=== PATIENT | female | born 1965 | race Caucasian/White ===

== ENCOUNTER → 2019-03-21 13:29 | Outpatient (CLI) | payer OTHER, SELFPAY ==
[2019-03-21 13:54] LABS: Basophils % 0.7 % (0.1-2.0); Eosinophils # 0.1 K/mm3 (0.0-0.4); Eosinophils % 1.7 % (0.1-12.0); Hematocrit 47.9 % (37.0-47.0); Hemoglobin 16.3 g/dL (12.2-16.2); Lymphocytes # 1.4 K/mm3 (0.7-4.5); Lymphocytes % 29.3 % (10-50); Mean Corpuscular HGB Conc 34.1 g/dL (31.8-35.4); Mean Corpuscular Hemoglobin 30.5 pg (27.0-31.2); Mean Corpuscular Volume 89.7 fl (81-99); Monocytes # 0.2 K/mm3 (0.1-1.0); Monocytes % 4.5 % (1.7-9.3); Neutrophils # 3.1 K/mm3 (1.8-7.8); Neutrophils % 63.8 % (37.0-80.0); Platelet Count 314 K/mm3 (142-424); Red Blood Count 5.35 M/mm3 (4.20-5.40); Red Cell Distribution Width 12.8 % (11.5-17.5); White Blood Count 4.9 K/mm3 (4.8-10.8)
[2019-03-21 14:43] LABS: Alanine Aminotransferase 35 U/L (12-78); Albumin Level 3.9 gm/dL (3.4-5.0); Albumin/Globulin Ratio 1.2 (1.1-1.8); Alkaline Phosphatase 97 U/L (46-116); Anion Gap 10.5 mEq/L (5-15); Aspartate Amino Transferase 25 U/L (15-37); Bilirubin,Total 0.3 mg/dL (0.2-1.0); Blood Urea Nitrogen 16 mg/dL (7-18); Calcium 8.9 mg/dL (8.5-10.1); Carbon Dioxide 31 mmol/L (21.0-32.0); Chloride 103 mmol/L (98-107); Creatinine,Serum 1.39 mg/dL (0.55-1.02); Estimated Glomerular Filt Rate 40 ml/min (>60); Free Thyroxine Index 0.5 ug/dL (5.93-13.13); GFR (African American) 48 ML/MIN (>60); Globulin 3.3 gm/dl (1.3-3.2); Glucose 97 mg/dL (74-106); Potassium 4.5 mmoL/L (3.5-5.1); Sodium 140 mmol/L (136-145); T4 (Thyroxine) 1.6 ug/dl (4.7-13.3); Thyroid Stimulating Hormone 33.78 uIU/ml (0.358-3.740); Total Protein,Serum 7.2 gm/dL (6.4-8.2); Triiodothryronine (T3) Uptake 30 % (31-39)
[2019-03-23 18:24] LABS: Peripheral Smear Review Scanned Result
[2019-03-25 17:10] LABS: Erythropoietin 10.3 mIU/mL (2.6-18.5)
== END ==
PROVIDERS: Visit Provider Internal Medicine Adolescent Medicine
DX: E03.9 Hypothyroidism, unspecified (principal); I10 Essential (primary) hypertension
CPT/HCPCS: 36415; 80053; 82668; 84436; 84443; 84479; 85025

== ENCOUNTER → 2019-03-28 07:41 | Outpatient (CLI) | payer OTHER, SELFPAY ==
--- NOTE | 2019-03-28 07:45 | US_ITS ---
PROCEDURE: US THYROID CLINICAL INDICATION: HYPOTHYROIDISM Thyroid enlargement, weight gain, cough COMPARISON: No exams were available for comparison FINDINGS: Right lobe: 6.3 x 2.3 x 2.2 cm. There is diffuse heterogeneous echogenicity but no discrete nodule. Left lobe: 5.2 x 1.9 x 2.1 cm with diffuse heterogeneous echogenicity but no discrete nodule Isthmus: The isthmus is thickened at 8 mm Additional findings: IMPRESSION: Enlarged thyroid gland with diffuse heterogeneous echogenicity consistent with goiter without obvious nodule Dictated by: Jass Vieira MD 03/28/2019 17:01 Electronically signed by Jass Vieira MD in [place] 03/28/2019 17:01
== END ==
PROVIDERS: PCP Internal Medicine Adolescent Medicine; Visit Provider Internal Medicine Adolescent Medicine
DX: E03.9 Hypothyroidism, unspecified (principal)
CPT/HCPCS: 76536

== ENCOUNTER → 2019-04-04 09:34 | Outpatient (CLI) | payer OTHER, SELFPAY ==
--- NOTE | 2019-04-04 09:41 | MR_ITS ---
PROCEDURE: MR SHOULDER LT WO CON CLINICAL INDICATION: Lt shoulder pain COMPARISON: No exams were available for comparison TECHNIQUE: Fall with limited range of motion routine multiplanar multisequence exam was performed. FINDINGS: There is a full-thickness tear with retraction of the supraspinatus tendon of the rotator cuff. A partial thickness tear of the infraspinatus tendon along its inferior aspect at the greater tuberosity attachment site is also noted. There is a tear with retraction of the subscapularis tendon as it overlies the humeral head. There is fluid consistent with hemorrhage/edema along the subscapularis muscle plane. No normal appearing proximal biceps tendon is demonstrated within the bicipital tendon groove. Anterior and medial dislocation of the bicipital tendon is noted. A greater than normal amount of fluid is seen in the bicipital tendon sheath consistent with hemorrhage. Hemorrhage/edema is seen in the soft tissues along the proximal shaft of the humerus. Moderate sized joint effusion/hemarthrosis is noted. A small amount of bone marrow edema is seen in the distal clavicle and in the acromion. This is likely reactive associated with AC joint arthropathy. Osseous contusion is felt to be less likely. A small amount of fluid is seen in the acromial clavicular joint space. No fracture or dislocation of the scapula or humerus is apparent. IMPRESSION: Tear with retraction of subscapularis tendon. Full-thickness tear of supraspinatus tendon with partial thickness tear infraspinatus tendon. Dislocation of bicipital tendon. Dictated by: Michi Sequeira 04/04/2019 10:51 Electronically signed by Michi Sequeira in [place] 04/04/2019 10:51
== END ==
PROVIDERS: PCP Internal Medicine Adolescent Medicine; Visit Provider Orthopaedic Surgery
DX: S40.012A Contusion of left shoulder, initial encounter (principal)
CPT/HCPCS: 73221

== ENCOUNTER → 2019-04-05 10:59 | Outpatient (CLI) | payer OTHER, SELFPAY ==
[2019-04-05 11:26] LABS: Eosinophils # 0.1 K/mm3 (0.0-0.4); Eosinophils % 1.4 % (0.1-12.0); Hematocrit 46.9 % (37.0-47.0); Hemoglobin 16.4 g/dL (12.2-16.2); INR 0.96 (0.9-1.1); Lymphocytes # 1.4 K/mm3 (0.7-4.5); Lymphocytes % 31.1 % (10-50); Mean Corpuscular HGB Conc 34.9 g/dL (31.8-35.4); Mean Corpuscular Hemoglobin 31.5 pg (27.0-31.2); Mean Corpuscular Volume 90.2 fl (81-99); Mean Platelet Volume 7.1 fl (7.4-10.4); Monocytes # 0.2 K/mm3 (0.1-1.0); Monocytes % 3.8 % (1.7-9.3); Neutrophils # 2.8 K/mm3 (1.8-7.8); Neutrophils % 62.8 % (37.0-80.0); Platelet Count 278 K/mm3 (142-424); White Blood Count 4.5 K/mm3 (4.8-10.8)
[2019-04-05 12:55] LABS: Chloride 104 mmol/L (98-107); Potassium 4.7 mmoL/L (3.5-5.1); Sodium 139 mmol/L (136-145)
[2019-04-05 12:58] LABS: Alanine Aminotransferase 25 U/L (12-78); Albumin Level 4.4 g/dl (3.5-5.0); Albumin/Globulin Ratio 1.4 (1.1-1.8); Alkaline Phosphatase 87 U/L (38-126); Anion Gap 12.7 mEq/L (5-15); Aspartate Amino Transferase 26 U/L (14-36); Bilirubin,Total 0.7 mg/dl (0.2-1.3); Blood Urea Nitrogen 15 mg/dl (7-17); Carbon Dioxide 27 mmol/L (22.0-30.0); Estimated Glomerular Filt Rate 75 ml/min (>60); GFR (African American) 91 ML/MIN (>60); Globulin 3.1 g/dL (1.3-3.2); Total Protein,Serum 7.5 g/dl (6.3-8.2)
[2019-04-05 12:59] LABS: Calcium 9.4 mg/dl (8.4-10.2); Glucose 95 mg/dl (74-100)
== END ==
PROVIDERS: Visit Provider Orthopaedic Surgery
DX: Z01.818 Encounter for other preprocedural examination (principal); S46.012D Strain of muscle(s) and tendon(s) of the rotator cuff of left shoulder, subsequent encounter; S46.102D Unspecified injury of muscle, fascia and tendon of long head of biceps, left arm, subsequent encounter
CPT/HCPCS: 36415; 80053; 85025; 85610

== ENCOUNTER → 2019-04-25 11:56 | Outpatient (CLI) | payer OTHER, SELFPAY ==
[2019-04-25 12:13] LABS: Basophils % 0.6 % (0.1-2.0); Eosinophils # 0.1 K/mm3 (0.0-0.4); Hematocrit 47.3 % (37.0-47.0); Lymphocytes # 1.6 K/mm3 (0.7-4.5); Lymphocytes % 31.5 % (10-50); Mean Corpuscular HGB Conc 33.8 g/dL (31.8-35.4); Mean Corpuscular Hemoglobin 31.3 pg (27.0-31.2); Mean Corpuscular Volume 92.7 fl (81-99); Mean Platelet Volume 7.3 fl (7.4-10.4); Monocytes # 0.3 K/mm3 (0.1-1.0); Monocytes % 5.2 % (1.7-9.3); Neutrophils # 3.2 K/mm3 (1.8-7.8); Neutrophils % 61.6 % (37.0-80.0); Platelet Count 386 K/mm3 (142-424); White Blood Count 5.1 K/mm3 (4.8-10.8)
[2019-04-25 13:23] LABS: Chloride 97 mmol/L (98-107); Potassium 4.9 mmoL/L (3.5-5.1); Sodium 138 mmol/L (136-145)
[2019-04-25 13:25] LABS: Blood Urea Nitrogen 14 mg/dl (7-17); Estimated Glomerular Filt Rate 88 ml/min (>60); GFR (African American) 106 ML/MIN (>60)
[2019-04-25 13:26] LABS: Alanine Aminotransferase 19 U/L (12-78); Albumin Level 4.5 g/dl (3.5-5.0); Albumin/Globulin Ratio 1.4 (1.1-1.8); Alkaline Phosphatase 94 U/L (38-126); Anion Gap 14.9 mEq/L (5-15); Aspartate Amino Transferase 20 U/L (14-36); Bilirubin,Total 0.4 mg/dl (0.2-1.3); Calcium 9.8 mg/dl (8.4-10.2); Carbon Dioxide 31 mmol/L (22.0-30.0); Globulin 3.2 g/dL (1.3-3.2); Glucose 92 mg/dl (74-100); Total Protein,Serum 7.7 g/dl (6.3-8.2)
[2019-04-25 13:58] LABS: Thyroid Stimulating Hormone 8.68 uIU/mL (0.465-4.68)
== END ==
PROVIDERS: Visit Provider Internal Medicine Adolescent Medicine
DX: D75.1 Secondary polycythemia (principal); R79.89 Other specified abnormal findings of blood chemistry; E03.9 Hypothyroidism, unspecified
CPT/HCPCS: 36415; 80053; 84443; 85025

== ENCOUNTER → 2019-05-10 08:17 | Outpatient (CLI) | payer OTHER, SELFPAY ==
--- NOTE | 2019-05-10 08:21 | XR_ITS ---
PROCEDURE: XR SHOULDER LT MIN 2V CLINICAL INDICATION: sp LT shoulder surgery, dos 04/11/2019 Follow-up surgery COMPARISON: XR SHOULDER LT MIN 2V from 04/03/2019 XR SHOULDER LT MIN 2V from 04/11/2019 FINDINGS: 2 anchor screws are present in the humeral head as before. Small sclerotic linear density is present distal to the lower anchor screw. No fracture or dislocation. There is mild subacromial stenosis with mild superior location of the humeral head with mild osteoarthritis of the glenohumeral. External rotation view was not performed due to patient's instructions. IMPRESSION: No change with no acute finding. Postsurgical changes of the humeral head with mild osteoarthritic change in subacromial stenosis Dictated by: Jass Vieira MD 05/10/2019 08:38 Electronically signed by Jass Vieira MD in [place] 05/10/2019 08:38
== END ==
PROVIDERS: PCP Internal Medicine Adolescent Medicine; Visit Provider Orthopaedic Surgery
DX: Z48.89 Encounter for other specified surgical aftercare (principal); M25.512 Pain in left shoulder
CPT/HCPCS: 73030

== ENCOUNTER → 2019-06-06 08:14 | Outpatient (CLI) | payer OTHER, SELFPAY ==
[2019-06-06 08:57] LABS: Basophils % 0.7 % (0.1-2.0); Eosinophils # 0.1 K/mm3 (0.0-0.4); Eosinophils % 3.5 % (0.1-12.0); Hematocrit 44.2 % (37.0-47.0); Hemoglobin 15.3 g/dL (12.2-16.2); Lymphocytes # 1.5 K/mm3 (0.7-4.5); Lymphocytes % 41.2 % (10-50); Mean Corpuscular HGB Conc 34.6 g/dL (31.8-35.4); Mean Corpuscular Volume 89.6 fl (81-99); Mean Platelet Volume 7.1 fl (7.4-10.4); Monocytes # 0.3 K/mm3 (0.1-1.0); Monocytes % 6.8 % (1.7-9.3); Neutrophils # 1.7 K/mm3 (1.8-7.8); Neutrophils % 47.8 % (37.0-80.0); Platelet Count 286 K/mm3 (142-424); Red Blood Count 4.93 M/mm3 (4.20-5.40); Red Cell Distribution Width 12.7 % (11.5-17.5); White Blood Count 3.6 K/mm3 (4.8-10.8)
[2019-06-06 10:13] LABS: Chloride 103 mmol/L (98-107); Potassium 4.4 mmoL/L (3.5-5.1); Sodium 138 mmol/L (136-145)
[2019-06-06 10:16] LABS: Alanine Aminotransferase 37 U/L (12-78); Albumin Level 4.3 g/dl (3.5-5.0); Albumin/Globulin Ratio 1.5 (1.1-1.8); Alkaline Phosphatase 91 U/L (38-126); Anion Gap 11.4 mEq/L (5-15); Aspartate Amino Transferase 27 U/L (14-36); Bilirubin,Total 0.7 mg/dl (0.2-1.3); Blood Urea Nitrogen 15 mg/dl (7-17); Calcium 9.6 mg/dl (8.4-10.2); Carbon Dioxide 28 mmol/L (22.0-30.0); Cholesterol 231 mg/dl (140-200); Estimated Glomerular Filt Rate 88 ml/min (>60); GFR (African American) 106 ML/MIN (>60); Globulin 2.8 g/dL (1.3-3.2); Glucose 96 mg/dl (74-100); Total Protein,Serum 7.1 g/dl (6.3-8.2); Triglycerides 199 mg/dl (30-150); VLDL Cholesterol 40 mg/dL (0-40)
[2019-06-06 10:17] LABS: HDL Cholesterol 46 mg/dl (40-60)
[2019-06-06 10:28] LABS: Direct LDL Cholesterol 156.12 mg/dL (100-129)
[2019-06-06 10:48] LABS: Thyroid Stimulating Hormone 0.58 uIU/mL (0.465-4.68)
== END ==
PROVIDERS: Visit Provider Internal Medicine Adolescent Medicine
DX: E03.9 Hypothyroidism, unspecified (principal); I10 Essential (primary) hypertension
CPT/HCPCS: 36415; 80053; 80061; 84443; 85025

== ENCOUNTER → 2019-07-10 08:18 | Outpatient (CLI) | payer OTHER, SELFPAY ==
--- NOTE | 2019-07-10 08:23 | XR_ITS ---
PROCEDURE: XR SHOULDER LT MIN 2V CLINICAL INDICATION: shoulder pain Previous shoulder surgery COMPARISON: XR SHOULDER LT MIN 2V from 05/10/2019 FINDINGS: The surgical anchors are again seen projecting over the humeral head. Again noted is a slightly high-riding humeral head with slight subacromial stenosis. There is mild degenerate change of the AC joint. There are no soft tissue calcifications. IMPRESSION: Stable left shoulder with postsurgical changes and mild subacromial stenosis Dictated by: Dr. Flaco Freeman MD 07/10/2019 14:[address] Flaco Freeman MD in [place] 07/10/2019 14:24
== END ==
PROVIDERS: PCP Internal Medicine Adolescent Medicine; Visit Provider Orthopaedic Surgery
DX: M75.102 Unspecified rotator cuff tear or rupture of left shoulder, not specified as traumatic (principal); S46.102A Unspecified injury of muscle, fascia and tendon of long head of biceps, left arm, initial encounter
CPT/HCPCS: 73030

== ENCOUNTER 2019-09-05 10:00 | Outpatient (RCR) | payer OTHER, SELFPAY ==
--- NOTE | 2019-05-23 12:22 | HMH.PTOPEV ---
PT Outpatient Evaluation Rehab PT Outpatient Evaluation Start: 05/23/19 09:48 Freq: Status: Active Protocol: Document 05/23/19 11:02 FRANCOIS (Rec: 05/23/19 12:21 PDESEROUX [id number]) Electronically Signed By John Adams, PT 05/23/19 11:02 Outpatient Therapy Subjective History Subjective History Pt. is a 54 year old female who presents to outpatient PT with complaints of subacute and constant L shldr./bicep P! s/p open LUE RTC repair of subscap. and supraspinatus with LUE LHBT tenodesis on 04/11/19. Pt. reports tripping and falling over a rug next to the Pharmacy at hospital with her LUE outstretched above her head on 04/03/19. Pt. reports donning LUE sling at all times except for bathing for the past 6 wks. and has been working on squeezing her stress ball and moving her wrist. Pt. also reports post surgical precautions including no lifting/pushing/pulling. Pt. RTMD 06/07/19. Pt. also reports that she hasn't been icing the past few days, PT instructed pt. to continue icing for 20' at least 3x/day, pt. vocalized understanding. Current medications include Lisinopril, Levothyroxine, Zofran, and Tylenol. PMH includes Appendectomy, Cholecystectomy, HTN, Asthma, and Varicose Vein stripping. Chief Complaint Pain,Stiff,Swelling Symptom Type Ache,Dull,Numbness Symptoms Relieved By Brace/Support,OTC Meds, Prescription Meds Symptoms Aggravated By Supine,Physical Activity, Lifting Prior Functional Limitations None Current Functional Limitations Reaching,Lifting,Housework, Dressing,Driving,Sleeping, Recreation Activity Symptom Description Constant but Variable Level of pain today (0-10) 7 Pain scale - at its best (0-10) 10 Pain scale - at its worst (0-10) 5 Shoulder/Elbow Zaira
== END 2019-09-23 11:00 | disposition home or self-care (01) ==
LOC: PT.CARL 10:00
PROVIDERS: Visit Provider Orthopaedic Surgery
DX: S46.012D Strain of muscle(s) and tendon(s) of the rotator cuff of left shoulder, subsequent encounter (principal)
CPT/HCPCS: 97010; 97014; 97033; 97110; 97140; 97163; 97164; G0283

== ENCOUNTER → 2019-09-19 12:48 | Outpatient (CLI) | payer OTHER, SELFPAY ==
--- NOTE | 2019-09-19 12:49 | MR_ITS ---
PROCEDURE: MR SHOULDER LT WO CON CLINICAL INDICATION: Lt shoulder pain PRIOR SHOULDER SURGERY AFTER FALL ON APR 11. UNABLE TO RAISE ARM ABOVE HEAD. WEAKNESS IN ARM. INCREASED PAIN. BEEN GOING TO PHYSICAL THERAPY. PRIOR MRI 04/04/2019. PRIOR X-RAY 07/10/2019 COMPARISON: MR MR SHOULDER LT WO CON from 04/04/2019 CR XR SHOULDER LT MIN 2V from 07/10/2019 TECHNIQUE: Routine multiplanar multi echo sequences are performed without gadolinium enhancement. FINDINGS: There are postsurgical changes with artifact from the anchor screws and metallic shavings. Correlation with the hyper surgery performed is needed. Previously the patient had a tear of the subscapularis tendon and supraspinatus tendon. The subscapularis tendon fibers once again noted to be retracted consistent with tear of the subscapularis tendon. The supraspinatus tendon fibers do not appear intact as well distally consistent with tear of the supraspinatus. The infraspinatus tendon does appear to be intact as does the teres minor tendon. Humeral head is somewhat high-riding. No obvious labral tear. There has been prior bicipital tendon transfer. IMPRESSION: There appears to be persistent tear of the subscapularis tendon now with tear of the supraspinatus tendon which appears complete with some minimal retraction of the tendon fibers with postsurgical changes. Dictated b Jass Vieira MD 09/23/2019 09:37 Jass Vieira MD in [place] 09/23/2019 09:37
== END ==
PROVIDERS: PCP Internal Medicine Adolescent Medicine; Visit Provider Orthopaedic Surgery
DX: S46.102A Unspecified injury of muscle, fascia and tendon of long head of biceps, left arm, initial encounter; M75.102 Unspecified rotator cuff tear or rupture of left shoulder, not specified as traumatic
CPT/HCPCS: 73221

== ENCOUNTER → 2019-10-16 10:27 | Outpatient (CLI) | payer OTHER, SELFPAY ==
[2019-10-16 11:04] LABS: Basophils % 0.7 % (0.1-2.0); Eosinophils % 0.6 % (0.1-12.0); Hematocrit 48.6 % (37.0-47.0); Hemoglobin 17.2 g/dL (12.2-16.2); Lymphocytes # 1.5 K/mm3 (0.7-4.5); Mean Corpuscular HGB Conc 35.3 g/dL (31.8-35.4); Mean Corpuscular Hemoglobin 32.1 pg (27.0-31.2); Mean Platelet Volume 6.8 fl (7.4-10.4); Monocytes # 0.2 K/mm3 (0.1-1.0); Monocytes % 4.8 % (1.7-9.3); Neutrophils % 62.9 % (37.0-80.0); Platelet Count 293 K/mm3 (142-424); Red Blood Count 5.35 M/mm3 (4.20-5.40); White Blood Count 4.8 K/mm3 (4.8-10.8)
[2019-10-16 11:32] LABS: Erythrocyte Sedimentation Rate 3 mm/hr (0-30)
== END ==
PROVIDERS: Visit Provider Orthopaedic Surgery
DX: M25.512 Pain in left shoulder (principal)
CPT/HCPCS: 36415; 85025; 85651; 86140

== ENCOUNTER 2019-11-24 09:02 | Emergency (ER) | payer OTHER, SELFPAY ==
--- NOTE | 2019-11-24 09:14 | XR_ITS ---
PROCEDURE: XR CHEST 2V Referring Doctor: Migue Montiel Patient Age:54Y CLINICAL HISTORY: cough Cough 4 days fever started this morning. Patient able Lev raise left arm due to shoulder surgery and pain Chest PT COMPARISON: CR XR CHEST EMPLOYEE from 11/28/2018 CR XR SHOULDER LT MIN 2V from 07/10/2019 FINDINGS: PA and lateral chest performed today but comparison is made to previous CX are 11/28/2018. E the heart is normal in size with heart sebastian and mediastinal structures appearing satisfactory and stable Subtle accentuation of markings at left mid lung was seen on the previous 2018 CXR study as well as a left shoulder exam from 2019 I believe reflects stable features//mild chronic changes. Nothing definitely acute otherwise. Markings are upper normal in prominence towards the right infrahilar region but appear stable but no discrete focal pneumonia. No pneumothorax but no pleural effusion Small metallic aero anchors are seen at the left humeral neck from previous shoulder surgery. IMPRESSION: Stable chest with nothing definitely acute Dictated by: Alfred Mackey MD 11/24/2019 17:03 Alfred Mackey MD in [place] 11/24/2019 17:03
[2019-11-24 09:26] VITALS: BP 150/98; PULSE 86; RESP 16; TEMP 36.8; O2SAT 98; BMI 29.0
--- NOTE | 2019-11-24 09:51 | HMH.EDUTC ---
[facility] [place] Clinical Impression: Acute bronchitis Qualifiers: Bronchitis organism: unspecified organism Qualified Code(s): J20.9 - Acute bronchitis, unspecified Disposition: Home, Self-Care Condition on Discharge: Good Instructions: DI for Pneumonia -- Adult, Preventing the Spread of Coronavirus Discharge Instructions Additional Instructions: Drink plenty of fluids. Take tylenol for pain or fever. Take the medications as directed. Follow up with your regular doctor. GO TO THE ER FOR ANY WORSENING SYMPTOMS FOLLOW THE DIRECTIONS ON THE COVID-19 HAND OUT THAT WE GAVE YOU REGARDING SELF-ISOLATION UNTIL YOU KNOW YOUR COVID-19 RESULTS Prescriptions: Benzonatate [Tessalon Perle 100mg Cap] 100 mg PO TIDP PRN #30 cap PRN Reason: Cough Transmission Status: Received by [id number] Azithromycin [Z-Arvind 250mg Tab*] 250 mg PO UD DOSE PK #6 tab Transmission Status: Received by [facility] # [id number] Referrals: Migue Ricketts MD [Primary Care Provider] - Forms: Work/School Release Time of Disposition: 10:10 Medical Decision Making - Medical Records Medical records reviewed: No: I reviewed the patient's medical records. - Rico Inquiry Pt receiving controlled substance: No Vital Signs: 11/24/19 09:26 11/24/19 10:15 Temperature 98.3 F 98.3 F Temperature Source Oral Pulse Rate 86 Pulse Rate [Right Brachial] 86 Respiratory Rate 16 16 Blood Pressure 150/98 H Blood Pressure [Right Arm] 150/98 H Blood Pressure Mean [Right Arm] 115 Blood Pressure Source [Right Arm] Automatic Cuff Blood Pressure Position [Right Arm] Sitting 02 Sat by Pulse Oximetry 98 Oxygen Delivery Method Room Air - Lab Data Lab results reviewed: Yes: I reviewed the patient's lab results. Lab Results 11/24/19 09:14: Influenza Type A Ag Negative, Influenza Type B Ag Negative 11/24/19 09:14: Strep Scn Rapid Clinic Negative Orders (Tests/Meds): ED MEDICATIONS Discontinued Medications Generic Name Dose Route Start Last Admin Trade Name Freq PRN Reason Stop Dose Admin Ceftriaxone Sodium 1 gm 11/24/19 09:52 11/24/19 10:08 Ceftriaxone 1gm Vial IM 11/24/19 09:53 1 gm ONCE ONE Administration Protocol Lidocaine HCl 0 ml 11/24/19 09:52 10/11/20 10:08 Lidocaine 1% 5ml Pf Vial IM 11/24/19 09:53 2.1 ml ONCE ONE Administration ORDERS Category Date Time Status Strep Screen Confirmation Stat Micro 11/24/19 09:14 Received [facility] [place]PI - General Stated complaint: Sore throat, Cough, Fever Time Seen by Provider: 11/24/19 09:51 Mode of Arrival: Ambulatory Source of Information: Patient Limitations: No Limitations Description of Symptoms (Recalled from Triage Doc. by RN): PATIENT C/O NON-PRODUCTIVE COUGH, SOA, FEVER, FATIGUE, AND BODY ACHES X 3 DAYS. STATES SHE HAS HISTORY OF PNEUMONIA HEENT Symptoms (Recalled from RN notes): No Resp Symptoms (Recalled from RN notes): Yes Skin Symptoms (Recalled from RN notes): No MS Symptoms (Recalled from RN notes): Yes Functional Status (Recalled from RN notes): WNL - History of Present Illness Provider Complaint: She states that she has been coughing and feeling bad for the past 2 days. - Related Data Home Medications Medication Instructions Recorded Confirmed lisinopril 10 mg tablet 10 mg PO DAILY 04/04/19 11/24/19 Atorvastatin Calcium [Lipitor 10mg 10 mg PO HS 11/24/19 11/24/19 Tab] Famotidine [Pepcid 20mg Tablet] 20 mg PO BID 11/24/19 11/24/19 Levothyroxine Sodium 100 mcg PO DAILY 11/24/19 11/24/19 [Levothyroxine 100mcg (0.1MG) Tab] Previous Rx's Medication Instructions Recorded Azithromycin [Z-Arvind 250mg Tab*] 250 mg PO UD DOSE PK #6 tab 11/24/19 Benzonatate [Tessalon Perle 100mg 100 mg PO TIDP PRN #30 cap 11/24/19 Cap] Allergies Allergy/AdvReac Type Severity Reaction Status Date / Time morphine Allergy Severe Chest Pain Verified 09/26/19 10:13 - Worker's Comp Is this a Worker's Comp
[2019-11-24 10:01] LABS: UTC Influenza A Antigen Negative (Negative); UTC Influenza B Antigen Negative (Negative)
[2019-11-24 10:02] LABS: UTC Strep Screen (Rapid) Negative (Negative)
[2019-11-24 10:15] VITALS: BP 150/98; PULSE 86; RESP 16; TEMP 36.8; O2SAT 98
--- NOTE | 2019-11-24 13:54 | PC.NURSE ---
contacted pt r/t her covid swab results of positive by the direction of arnold stanton. Pt advised to follow quarantine instructions that were given to her a discharge from [facility]. Pt verbalized understanding.
== END 2019-11-24 10:25 | disposition home or self-care (01) ==
PROVIDERS: Emergency Provider Nurse Practitioner Family; PCP Internal Medicine Adolescent Medicine
DX: U07.1 COVID-19 (principal); I10 Essential (primary) hypertension; K21.9 Gastro-esophageal reflux disease without esophagitis; E03.9 Hypothyroidism, unspecified; Z87.891 Personal history of nicotine dependence; Z88.5 Allergy status to narcotic agent; Z79.899 Other long term (current) drug therapy
CPT/HCPCS: 71046; 87804; 87880; 96372; 99203; U0003

== ENCOUNTER → 2020-11-23 17:23 | Outpatient (CLI) | payer BC, SELFPAY ==
[2020-11-23 18:26] LABS: Chol/HDL Ratio 4.5 (1-3.5); Cholesterol 210 mg/dl (140-200); HDL Cholesterol 47 mg/dl (40-60); Triglycerides 128 mg/dl (30-150); VLDL Cholesterol 26 mg/dL (0-40)
[2020-11-23 18:41] LABS: Direct LDL Cholesterol 124.51 mg/dL (100-129)
== END ==
PROVIDERS: Visit Provider Internal Medicine Adolescent Medicine
DX: E78.49 Other hyperlipidemia (principal)
CPT/HCPCS: 80061

== ENCOUNTER 2022-01-09 07:58 | Emergency (ER) | payer BC, SELFPAY ==
[2022-01-09 08:10] VITALS: BP 138/74; PULSE 90; RESP 22; TEMP 36.8; O2SAT 98; BMI 29.8
--- NOTE | 2022-01-09 08:18 | EXP.UTC ---
Discharge Plan Disposition Patient Disposition: Home, Self-Care Condition: Good Prescriptions Prescriptions: New prednisone 10 mg tablet 10 mg PO BID 5 Days Qty: 10 0RF azithromycin [Zithromax Z-Arvind] 250 mg tablet See Rx Instructions .ROUTE .COMPLEX 5 Days Qty: 6 0RF Rx Instructions: For 250 mg dose pack: take 500 mg today (day 1), then 250 mg for 4 days (days 2-5) benzonatate 100 mg capsule 100 mg PO TID PRN (Reason: cough) Qty: 30 0RF No Action lisinopril 10 mg tablet 10 mg PO DAILY atorvastatin 10 MG tablet 10 mg PO HS levothyroxine 100 MCG tablet 100 mcg PO DAILY famotidine 20 MG tablet 20 mg PO BID azithromycin 250 MG tablet 250 mg PO UD DOSE PK Qty: 6 0RF Rx Instructions: Take two (2) tablets today, then one (1) tablet days #2 thru #5 benzonatate 100 MG capsule 100 mg PO TIDP PRN (Reason: Cough) Qty: 30 0RF Referrals Follow up/Referrals: Robbie Schultz MD [Primary Care Provider] - See instructions Activity Restrictions/Add. Instructions Additional Instructions/Restrictions: *Monitor Temp, Over the counter Motrin or Tylenol as directed/as needed Tylenol every 4 hours and Motrin every 6 hours (as long as your family doctor has told you that you can take it) for fever or pain. and straight to ER if unable to lower temp less than 101.0 after medication given *Warm salt water gargles may help to soothe the throat *Throat Lozenges? *Warm fluids like tea with honey may help to soothe the throat? *Sleep elevated *Humidifier/Vaporizer Your throat swab was sent for culture. Those results are typically sent to your primary care. Be sure to follow up in 2-3 days with your family doctor/primary care physician if no improvement so they can review those result and treat if necessary. If you don?t have a primary care doctor, I recommend you get one but in the mean time, you will have to return to a walk in clinic Follow up IMMEDIATELY for new or worsening symptoms or no Noticeable improvement over the next 48-72 hours. 911 for difficulty breathing or swallowing You were tested for today for COVID19 your test result should be back in the next 24-48 hours, you may check your results on the [facility] My Health Portal Clinical Impressions Clinical Impression: Sinusitis, Bronchitis Stand Alone Forms Stand Alone Forms: Work/School Release Instructions Patient Instructions: DI for Sinusitis, Sinusitis, Acute Bronchitis Discharge ED Provider: Geraldine Capone [facility] [place] HPI General Stated complaint: Chest congestion, BA, Sore throat, MACIAS Time Seen by Provider: 01/09/22 08:18 History of Present Illness Provider Complaint: Patient states that she has been having sinus congestion and pressure, cough, chest congestion, low grade fever, cough and body aches State that this morning she was feeling worse so she came in to get checked out Related Data Home Medications Medication Instructions Recorded Confirmed lisinopril 10 mg tablet 10 mg PO DAILY blood pressure 04/04/19 11/24/19 atorvastatin 10 mg tablet 10 mg PO HS Cholesterol 11/24/19 11/24/19 famotidine 20 mg tablet 20 mg PO BID GERD 11/24/19 11/24/19 levothyroxine 100 mcg tablet 100 mcg PO DAILY THYROID 11/24/19 11/24/19 Previous Rx's Medication Instructions Recorded azithromycin 250 mg tablet 250 mg PO UD DOSE PK #6 tabs 11/24/19 benzonatate 100 mg capsule 100 mg PO TIDP PRN Cough #30 caps 11/24/19 azithromycin 250 mg tablet See Rx Instructions PO .COMPLEX 5 01/09/22 (Zithromax Z-Arvind) days #6 tabs benzonatate 100 mg capsule 100 mg PO TID PRN cough #30 caps 01/09/22 prednisone 10 mg tablet 10 mg PO BID 5 days #10 tabs 01/09/22 Allergies Allergy/AdvReac Type Severity Reaction Status Date / Time morphine Allergy Severe Chest Pain Verified 09/26/19 10:13 [facility] Medical History (Updated 01/09/22 @ 08:47 by Geraldine Capone APRN) Asthma History of gastroesophageal reflux
[2022-01-09 08:37] VITALS: BP 138/74; PULSE 90; RESP 22; TEMP 36.8; O2SAT 98
[2022-01-09 08:40] LABS: UTC Influenza A Antigen Negative (Negative); UTC Strep Screen (Rapid) Negative (Negative)
[2022-01-09 08:41] LABS: UTC Influenza B Antigen Negative (Negative)
[2022-01-09 08:57] LABS: Adenovirus,PCR Not Detected (NotDetected); Bordetella Pertussis Not Detected (NotDetected); Chlamydophila Pneumoniae, PCR Not Detected (NotDetected); Coronavirus 19, PCR Not Detected (NotDetected); Coronavirus 229E Not Detected (NotDetected); Coronavirus NL63 Not Detected (NotDetected); Coronavirus OC43 Not Detected (NotDetected); Coronovirus HKU1,PCR Not Detected (NotDetected); Human Metapneumovirus Not Detected (NotDetected); Influenza A, PCR Not Detected (NotDetected); Influenza AH1, 2009 Not Detected (NotDetected); Influenza AH1, PCR Not Detected (NotDetected); Influenza AH3,PCR Not Detected (NotDetected); Influenza B, PCR Not Detected (NotDetected); Mycoplasma Pneumoniae, PCR Not Detected (NotDetected); Parainfluenza 1, PCR Not Detected (NotDetected); Parainfluenza 2, PCR Not Detected (NotDetected); Parainfluenza 3, PCR Not Detected (NotDetected); Parainfluenza 4, PCR Not Detected (NotDetected); Respiratory Syncytial Virus Not Detected (NotDetected)
[2022-01-09 10:38] LABS: Rhinovirus/Enterovirus Detected (NotDetected)
== END 2022-01-09 08:52 | disposition home or self-care (01) ==
PROVIDERS: Emergency Provider Nurse Practitioner; PCP Internal Medicine Adolescent Medicine
DX: J02.9 Acute pharyngitis, unspecified (principal); B97.10 Unspecified enterovirus as the cause of diseases classified elsewhere; R50.9 Fever, unspecified; R05.9 Cough, unspecified; M19.90 Unspecified osteoarthritis, unspecified site; R09.81 Nasal congestion; Z20.822 Contact with and (suspected) exposure to COVID-19; R51.9 Headache, unspecified; I10 Essential (primary) hypertension; K21.9 Gastro-esophageal reflux disease without esophagitis; E78.5 Hyperlipidemia, unspecified; E07.9 Disorder of thyroid, unspecified; J45.909 Unspecified asthma, uncomplicated; Z79.52 Long term (current) use of systemic steroids; Z88.0 Allergy status to penicillin; Z87.891 Personal history of nicotine dependence
CPT/HCPCS: 87581; 87632; 87798; 87804; 87880; 99213; C9803; G0463; U0003; U0005

== ENCOUNTER → 2022-04-12 11:37 | Outpatient (CLI) | payer BC, SELFPAY ==
[2022-04-12 12:36] LABS: Uric Acid 5.5 mg/dl (2.5-6.2)
[2022-04-12 12:41] LABS: C-Reactive Protein 4.7 mg/L (0-4)
[2022-04-12 13:28] LABS: Erythrocyte Sedimentation Rate 32 mm/hr (0-30)
== END ==
PROVIDERS: PCP Nurse Practitioner Family; Visit Provider Nurse Practitioner Family
DX: G62.9 Polyneuropathy, unspecified (principal)
CPT/HCPCS: 36415; 84550; 85651; 86140

== ENCOUNTER → 2022-05-03 13:01 | Outpatient (CLI) | payer BC, SELFPAY ==
--- NOTE | 2022-05-03 13:04 | CT_ITS ---
FINAL REPORT CLINICAL HISTORY: FATIGUE,NODULE,ABN FINDING OF LUNG FIELD FINDINGS: Axial images were obtained from the lung apex to the mid abdomen by computed tomography. Coronal reformatted images were obtained. This study was performed with techniques to keep radiation doses as low as reasonably achievable, (ALARA). Individualized dose reduction techniques using automated exposure control or adjustment of mA and/or kV according to the patient's size were employed. There is no axillary adenopathy. There is no hilar or mediastinal adenopathy. Heart size is normal. There is no pericardial or pleural effusion. Limited images of the upper abdomen are unremarkable. There is an 8 mm nodule in the anterior right upper lobe on image 23 of series 2. There is a 1.8 cm irregular density in the posterior left upper lobe on image 38 of series 2. IMPRESSION: 1.8 cm density in the posterior left upper lobe could be inflammatory/infectious. Recommend 6 week follow-up to ensure resolution. 8 mm anterior right upper lobe nodule. Recommend six-month follow-up. Reviewed, Interpreted and Dictated by Salvador Bundy MD Transcribed by Ivan Samuel Authenticated and . [facility]
== END ==
LOC: RAD 13:01
PROVIDERS: PCP Nurse Practitioner Family; Visit Provider Internal Medicine
DX: R53.83 Other fatigue (principal); R91.1 Solitary pulmonary nodule; R91.8 Other nonspecific abnormal finding of lung field
CPT/HCPCS: 71250

== ENCOUNTER → 2022-09-23 08:58 | Outpatient (CLI) | payer BC, SELFPAY ==
--- NOTE | 2022-09-23 09:07 | XR_ITS ---
FINAL REPORT TECHNIQUE: Bone densitometry calculations of the lumbar spine and left hip were obtained. CLINICAL HISTORY: GERONIMO screening, post menopausal FINDINGS: Using L1-4, the bone mineral density of the spine is 0.97 g/cm2, corresponding to T-score of -0.7. Using the left hip, the bone mineral density of the femoral neck is 0.83 g/cm2, corresponding to a T-score of -0.2. NOTE: T-score: Standard deviation compared with peak bone mass of young adult mean. *Following the recommendations of the International Society of Bone densitometry, classification of hip BMD is based on the lower of two T-scores; total hip or femoral neck. IMPRESSION: Normal bone mineral density of the lumbar spine and hip. Reviewed, Interpreted and Dictated by Alvarado Spain III, MD Transcribed by Rebecca Doan Authenticated and [facility]
== END ==
PROVIDERS: PCP Nurse Practitioner Family; Visit Provider Specialist
DX: Z78.0 Asymptomatic menopausal state (principal); Z13.820 Encounter for screening for osteoporosis
CPT/HCPCS: 77080

== ENCOUNTER 2023-11-26 10:32 | Emergency (ER) | payer BC, SELFPAY ==
[2023-11-26 11:00] VITALS: BP 142/89; PULSE 115; RESP 21; TEMP 37.6; O2SAT 96; BMI 31.0
--- NOTE | 2023-11-26 11:25 | ED_ITS ---
Discharge Plan Disposition Patient Disposition: Home, Self-Care Condition: Good Prescriptions Prescriptions: New azithromycin [Zithromax Z-Arvind] 250 mg tablet See Rx Instructions .ROUTE .COMPLEX 5 Days Qty: 6 0RF Rx Instructions: For 250 mg dose pack: take 500 mg today (day 1), then 250 mg for 4 days (days 2-5) methylprednisolone [Medrol (Arvind)] 4 mg tablets,dose pack See Rx Instructions .Route .COMPLEX 6 Days Qty: 21 0RF Rx Instructions: taper pack; No Action atorvastatin 20 mg tablet 20 mg PO DAILY famotidine 40 mg tablet 40 mg PO DAILY levothyroxine 100 mcg tablet 100 mcg PO DAILY lisinopril 10 mg tablet 10 mg PO DAILY diclofenac sodium 75 mg tablet,delayed release (DR/EC) 75 mg PO DAILY pregabalin 75 mg capsule 75 mg PO DAILY Referrals Follow up/Referrals: Samina Guajardo APRN [Primary Care Provider] - See instructions Activity Restrictions/Add. Instructions Additional Instructions/Restrictions: *Monitor Temp, Over the counter Motrin or Tylenol as directed/as needed Tylenol every 4 hours and Motrin every 6 hours (as long as your family doctor has told you that you can take it) for fever or pain. and straight to ER if unable to lower temp less than 101.0 after medication given *Warm salt water gargles may help to soothe the throat *Throat Lozenges? *Warm fluids like tea with honey may help to soothe the throat? *Sleep elevated *Humidifier/Vaporizer *If you did not take Penicillin shot or was unable to, start taking antibiotic immediately and make sure that you take it for the FULL length of time although you should start to feel better in 24-48 hours *change toothbrush and toothpaste 24-48 hours after starting to take antibiotics so you do not reinfect yourself Monitor Temp. Tylenol and/or Ibuprofen as needed. ER if fever is no less than 101 despite alternating Tylenol and Ibuprofen * Encourage fluids, water, Gatorade, powerade, pedialyte if /toddler/or child *Cold fluids, popsicles and ice cream may feel good on his throat Follow up IMMEDIATELY for new or worsening symptoms or no Noticeable improvement over the next 48-72 hours. 911 for difficulty breathing or swallowing Start oral antibiotics and Medrol tomorrow Clinical Impressions Clinical Impression: Strep throat Instructions Patient Instructions: Strep Throat, DI for Strep Throat Print Language Print Language: Lithuanian Discharge ED Provider: Geraldine Capone [facility] [place] HPI General Stated complaint: sore throat, neck/ear pain Mode of Arrival: Ambulatory Source of Information: Patient Limitations: No Limitations Time Seen by Provider: 11/26/23 11:25 Description of Symptoms (Recalled from Triage Doc. by RN): PATIENT C/O SORE THROAT AND BODY ACHES SINCE MONDAY AFTERNOON HEENT Symptoms (Recalled from RN notes): Yes Resp Symptoms (Recalled from RN notes): No Skin Symptoms (Recalled from RN notes): No MS Symptoms (Recalled from RN notes): No Functional Status (Recalled from RN notes): WNL History of Present Illness Provider Complaint: Patient states that she has been having sore throat, body aches, chills and pain with swallowing since Monday that has continued to get worse States today her throat was killing her and hurt when she would swallow and felt like her throat was swollen so she came in to get checked Related Data Home Medications ?Medication ?Instructions ?Recorded ?Confirmed atorvastatin 20 mg tablet 20 mg PO DAILY 11/26/23 11/26/23 diclofenac sodium 75 mg 75 mg PO DAILY 11/26/23 11/26/23 tablet,delayed release famotidine 40 mg tablet 40 mg PO DAILY 11/26/23 11/26/23 levothyroxine 100 mcg tablet 100 mcg PO DAILY 11/26/23 11/26/23 lisinopril 10 mg tablet 10 mg PO DAILY 11/26/23 11/26/23 pregabalin 75 mg capsule 75 mg PO DAILY 11/26/23 11/26/23 Previous Rx's ?Medication ?Instructions ?Recorded azithromycin 250 mg tablet See Rx Instructions PO .COMPLEX 5 11/26/23 (Zithromax Z-Arvind) days #6 tabs methylprednisolone 4 mg tablets in See Rx Instructions .Route 11/26/23 a dose pack (Medrol (Arvind)) .COMPLEX 6 days #21 tabs Allergies Allergy/AdvReac Type Severity Reaction Status Date / Time morphine Allergy Severe Chest Pain Verified 09/26/19 10:13 Worker's Comp Is this a Worker's Comp case?: No PFSH PFS Disclaimer: The information contained in this section may have been updated after the patient was seen, as this information can be updated by other users. Medical History (Updated 11/26/23 @ 11:32 by Geraldine Capone APRN) Thyroid disease History of gastroesophageal reflux (GERD) Asthma Hyperlipidemia Hypertension Surgical History (Updated 01/09/22 @ 08:28 by Liss Truong RN) History of tubal ligation History of colonoscopy History of cholecystectomy History of appendectomy Social History Smoking Status: Former smoker alcohol intake: never substance use type: denies use current occupational status: other Travel in the last 8 weeks: None housing: house current occupation: [employer] caffeine: No ROS Obtained: Yes All systems reviewed & no additional complaints except as documented and Yes Systems reviewed as appropriate & no additional complaints except as documented Constitutional Constitutional: Reports system reviewed and no additional complaints, except as documented, Reports as per HPI, Reports body ache, Reports chills and Reports headache(s) ENT Ears, Nose, Mouth, and Throat: Reports system reviewed and no additional complaints, except as documented, Reports as per HPI, Reports headache(s) and Reports sore throat Cardiovascular Cardiovascular: Reports system reviewed and no additional complaints, except as documented and Reports as per HPI Respiratory Respiratory: Reports system reviewed and no additional complaints, except as documented and Reports as per HPI Gastrointestinal Gastrointestingal: Reports system reviewed and no additional complaints, except as documented and as per HPI Neurologic Neurologic: Reports headache(s) Physical Exam General General appearance: alert and in no apparent distress ENT ENT exam: Present mucous membranes moist Expanded ENT Exam Nose exam: Absent sinus tenderness Throat exam: Present tonsillar erythema and tonsillar exudate (left side) Respiratory Respiratory exam: Present normal lung sounds bilaterally; Absent respiratory distress or wheezes Cardiovascular Cardiovascular exam: Present regular rate, normal rhythm, tachycardia and normal heart sounds Abdominal Exam Abdominal exam: Present soft and normal bowel sounds; Absent distention or tenderness Neurological Exam Neurological exam: Present alert, oriented X3 and normal gait Medical Decision Making Medical Records Screening: Per USPSTF and CDC recommendations, given the prevalence of disease in our region, it is our hospital?s policy to screen for HIV and viral Hepatitis for all patients aged 18 and over and those with ongoing risk factors. Rico Inquiry Pt receiving controlled substance: No Rico was queried for this patient: No Vital Signs: 11/26/23 11:00 Temperature 99.7 F H Temperature Source Oral Pulse Rate [Right Brachial] 115 H Respiratory Rate 21 Blood Pressure [Right Arm] 142/89 H Blood Pressure Mean [Right Arm] 106 Blood Pressure Source [Right Arm] Automatic Cuff Blood Pressure Position [Right Arm] Sitting 02 Sat by Pulse Oximetry 96 Oxygen Delivery Method Room Air Lab Data Lab results reviewed: Yes I reviewed the patient's lab results.
[2023-11-26 11:28] LABS: UTC Strep Screen (Rapid) Positive (Negative)
[2023-11-26] MEDS: METHYLPREDNISOLONE SOD SUCC 125MG VIAL 125 MG IM (11:40)
[2023-11-26] MEDS: PENICILLIN G BENZATHINE 1,200,000 UNITS/2ML SYRINGE 1200000 UNIT IM (11:40)
[2023-11-26 11:49] VITALS: BP 142/89; PULSE 115; RESP 21; TEMP 37.6; O2SAT 96
== END 2023-11-26 11:52 | disposition home or self-care (01) ==
PROVIDERS: Emergency Provider Nurse Practitioner; PCP Nurse Practitioner Family
DX: J02.0 Streptococcal pharyngitis (principal)
CPT/HCPCS: 87880; 96372; 99213; G0381; J0561; J2919

== ENCOUNTER 2023-11-29 16:53 | Outpatient (CLI) | payer BC, SELFPAY ==
--- NOTE | 2023-11-29 17:10 | CT_ITS ---
PROCEDURE INFORMATION: Exam: CT Neck With Contrast Exam date and time: 11/29/2023 6:14 PM Age: 58 years old Clinical indication: Tonsilitis; Additional info: Swelling, enlargement of lt tonsil TECHNIQUE: Imaging protocol: Computed tomography of the neck with contrast. Radiation optimization: All CT scans at this facility use at least one of these dose optimization techniques: automated exposure control; mA and/or kV adjustment per patient size (includes targeted exams where dose is matched to clinical indication); or iterative reconstruction. Contrast material: ISOVUE; Contrast volume: 75 ml; Contrast route: IV; COMPARISON: CT CHEST WO CON 03/05/2022 13:15 FINDINGS: Salivary glands: Normal. Glands are normal in size. Pharynx: There is a 2.2 cm peripherally enhancing fluid collection adjacent to the left palatine tonsil. This causes mild to moderate effacement of the upper aerodigestive tract. Prevertebral and retropharyngeal spaces: Unremarkable. Larynx: Unremarkable. Epiglottis is normal. Thyroid: Normal. No enlarged or calcified nodules. Trachea: Visualized trachea is unremarkable. Lungs: Unremarkable as visualized. Lymph nodes: Shotty left cervical lymph nodes are likely reactive. Vasculature: The left vertebral artery originates directly from the aorta. Bones/joints: Unremarkable. No acute fracture. Soft tissues: Unremarkable. No significant soft tissue swelling. Other findings: Stigmata of old granulomatous disease. IMPRESSION: There is a 2.2 cm peripherally enhancing fluid collection adjacent to the left palatine tonsil. This causes mild to moderate effacement of the upper aerodigestive tract. This is consistent with peritonsillar abscess.
[2023-11-29 17:45] LABS: Basophils % 0.3 % (0.1-2.0); Eosinophils % 0.1 % (0.1-12.0); Hematocrit 42.6 % (37.0-47.0); Hemoglobin 14.6 g/dL (12.2-16.2); Lymphocytes # 1.9 K/mm3 (0.7-4.5); Lymphocytes % 16.9 % (10-50); Mean Corpuscular HGB Conc 34.4 g/dL (31.8-35.4); Mean Corpuscular Hemoglobin 31.7 pg (27.0-31.2); Mean Corpuscular Volume 92.1 fl (81-99); Monocytes # 0.6 K/mm3 (0.1-1.0); Monocytes % 5.1 % (1.7-9.3); Neutrophils # 8.5 K/mm3 (1.8-7.8); Neutrophils % 77.6 % (37.0-80.0); Platelet Count 323 K/mm3 (142-424); Red Blood Count 4.62 M/mm3 (4.20-5.40); White Blood Count 10.9 K/mm3 (4.8-10.8)
[2023-11-29 18:02] LABS: Anion Gap 10.6 mEq/L (5-15); Blood Urea Nitrogen 16 mg/dl (7-17); Calcium 9.4 mg/dl (8.4-10.2); Carbon Dioxide 28 mmol/L (22.0-30.0); Chloride 106 mmol/L (98-107); Estimated Glomerular Filt Rate 87 ml/min (>60); GFR (African American) 105 ML/MIN (>60); Glucose 94 mg/dl (74-100); Potassium 4.6 mmoL/L (3.5-5.1); Sodium 140 mmol/L (136-145)
[2023-11-29] MEDS: SODIUM CHLORIDE 0.9% 10ML SYR (RAD ONLY) 10 ML IV (18:25)
[2023-11-29] MEDS: IOPAMIDOL-370 (76%);100ML BOTTLE 75 ML IV (18:25)
== END 2023-11-29 23:59 | disposition home or self-care (01) ==
LOC: RAD 16:54
PROVIDERS: PCP Internal Medicine Adolescent Medicine; Visit Provider Nurse Practitioner Family
DX: R22.1 Localized swelling, mass and lump, neck (principal); J02.0 Streptococcal pharyngitis; J35.1 Hypertrophy of tonsils
CPT/HCPCS: 36415; 70491; 80048; 85025; Q9967

== ENCOUNTER 2023-11-29 18:29 | Emergency (ER) | payer BC, SELFPAY ==
[2023-11-29 18:36] VITALS: BP 159/99; PULSE 103; RESP 16; TEMP 36.8; O2SAT 98; BMI 31.0
--- NOTE | 2023-11-29 18:45 | ED_ITS ---
Discharge Plan Disposition Patient Disposition: Xfer Short-Term Hosp Condition: Good Prescriptions Prescriptions: No Action atorvastatin 20 mg tablet 20 mg PO DAILY famotidine 40 mg tablet 40 mg PO DAILY levothyroxine 100 mcg tablet 100 mcg PO DAILY lisinopril 10 mg tablet 10 mg PO DAILY diclofenac sodium 75 mg tablet,delayed release (DR/EC) 75 mg PO DAILY pregabalin 75 mg capsule 75 mg PO DAILY azithromycin [Zithromax Z-Arvind] 250 mg tablet See Rx Instructions .ROUTE .COMPLEX 5 Days Qty: 6 0RF Rx Instructions: For 250 mg dose pack: take 500 mg today (day 1), then 250 mg for 4 days (days 2-5) methylprednisolone [Medrol (Arvind)] 4 mg tablets,dose pack See Rx Instructions .Route .COMPLEX 6 Days Qty: 21 0RF Rx Instructions: taper pack; Referrals Follow up/Referrals: Robbie Schultz MD [Primary Care Provider] - See instructions Activity Restrictions/Add. Instructions Additional Instructions/Restrictions: Please proceed directly to [facility] emergency department for evaluation. Clinical Impressions Clinical Impression: Abscess, peritonsillar Print Language Print Language: Hungarian Discharge ED Provider: Nia Lowery General Adult HPI General Chief complaint: PAIN Stated complaint: poss tonsil abscess Time Seen by Provider: 11/29/23 18:33 Mode of Arrival: Ambulatory Source of Information: Patient and Spouse Limitations: No Limitations Description of Symptoms (Recalled from ER Triage Doc. by RN): Pt. presents to the ED with complaints of throat pain and difficulty swallowing since Monday. She went to the [facility] on Monday and tested positive for Strep A, she was given a antibiotic shot, steroid shot, and a z-pack to go home with. She went to her PCP today and was sent for a CT scan. She has been taking ibuprofen and tylenol around the clock and reports no help with pain. History of Present Illness HPI narrative: This patient is a 58-year-old female with a history of hypertension, hyp erlipidemia, hypothyroidism, GERD, and asthma presenting to the emergency department for evaluation with concern for worsening sore throat. Patient was evaluated at [facility] 11/26/2023 and diagnosed with strep throat. She saw her primary care provider today because her pain has worsened despite being on azithromycin and methylprednisolone. She saw her primary care provider today who ordered outpatient labs and CT scan, and she came directly down here from [place] for worsened pain. She states that it feels like it is hard to swallow because of the pain and swelling in her throat. No difficulty breathing, meningismus, trismus, or other concerns. No fevers or systemic symptoms. Related Data Home Medications ?Medication ?Instructions ?Recorded ?Confirmed atorvastatin 20 mg tablet 20 mg PO DAILY 11/26/23 11/26/23 diclofenac sodium 75 mg 75 mg PO DAILY 11/26/23 11/26/23 tablet,delayed release famotidine 40 mg tablet 40 mg PO DAILY 11/26/23 11/26/23 levothyroxine 100 mcg tablet 100 mcg PO DAILY 11/26/23 11/26/23 lisinopril 10 mg tablet 10 mg PO DAILY 11/26/23 11/26/23 pregabalin 75 mg capsule 75 mg PO DAILY 11/26/23 11/26/23 Previous Rx's ?Medication ?Instructions ?Recorded azithromycin 250 mg tablet See Rx Instructions PO .COMPLEX 5 11/26/23 (Zithromax Z-Arvind) days #6 tabs methylprednisolone 4 mg tablets in See Rx Instructions .Route 11/26/23 a dose pack (Medrol (Arvind)) .COMPLEX 6 days #21 tabs Allergies Allergy/AdvReac Type Severity Reaction Status Date / Time morphine Allergy Severe Chest Pain Verified 09/26/19 10:13 [facility] Disclaimer: The information contained in this section may have been updated after the patient was seen, as this information can be updated by other users. Medical History Thyroid disease History of gastroesophageal reflux (GERD) Asthma Hyperlipidemia Hypertension Surgical History History of tubal ligation History of colonoscopy History of cholecystectomy History of appendectomy Social History Smoking Status: Never smoker alcohol intake: never substance use type: denies use current occupational status: other Travel in the last 8 weeks: None housing: house current occupation: [employer] caffeine: No Other Medical History Have you received the Flu Vaccine for this season: Yes Have you received the Pneumonia Vaccine: No ROS Obtained: Yes All systems reviewed & no additional complaints except as documented Physical Exam General General appearance: alert and in no apparent distress Head Head exam: atraumatic and normocephalic Eye Eye exam: Present normal appearance, PERRL and EOMI ENT ENT exam: Present mucous membranes moist and normal external ear exam Expanded ENT Exam Mouth exam: Present normal external inspection; Absent drooling, trismus, lip swelling, tongue normal, tongue elevation, tongue swelling or laceration Teeth exam: Present normal inspection Throat exam: Present tonsillar erythema, tonsillomegaly, tonsillar exudate and L peritonsillar mass; Absent muffled voice Comment: Left peritonsillar abscess Neck Neck exam: Present normal inspection, full ROM and trachea midline; Absent tenderness or meningismus Chest Chest inspection: Present normal inspection and symmetric chest wall rise; Absent tenderness Respiratory Respiratory exam: Present normal lung sounds bilaterally; Absent respiratory distress, wheezes, stridor or accessory muscle use Cardiovascular Cardiovascular exam: Present regular rate and normal rhythm Abdominal Exam Abdominal exam: Present soft; Absent distention, tenderness or guarding Extremities Exam Extremities exam: Present normal inspection, full ROM and normal capillary refill; Absent tenderness or edema Back Exam Back exam: Present normal inspection and full ROM; Absent tenderness Neurological Exam Neurological exam: Present alert, oriented X3, CN II-XII intact and normal gait; Absent motor sensory deficit Psychiatric Psychiatric exam: Present normal affect and normal mood Skin Skin exam: Present warm and dry Medical Decision Making Medical Records Medical records reviewed: Yes I reviewed the patient's medical records. Screening: Per USPSTF and CDC recommendations, given the prevalence of disease in our [place], it is our hospital?s policy to screen for HIV and viral Hepatitis for all patients aged 18 and over and those with ongoing risk factors. Rico Inquiry Pt receiving controlled substance: No Vital Signs: 11/29/23 18:36 11/29/23 19:02 Temperature 98.2 F Temperature Source Oral Pulse Rate 87 Pulse Rate [Right Brachial] 103 H Respiratory Rate 16 Blood Pressure 173/93 H Blood Pressure [Right Arm] 159/99 H Blood Pressure Mean [Right Arm] 119 Blood Pressure Source [Right Arm] Automatic Cuff Blood Pressure Position [Right Arm] Sitting 02 Sat by Pulse Oximetry 98 98 Oxygen Delivery Method Room Air Room Air Lab Data Lab results reviewed: Yes I reviewed the patient's lab results. Lab Results 11/29/23 17:05: ESR 16, C-Reactive Protein 39.6 H Orders (Tests/Meds): ED MEDICATIONS Discontinued Medications Generic Name Dose Route Start Last Admin Trade Name Freq PRN Reason Stop Dose Admin Acetaminophen 1,000 mg 11/29/23 18:41 11/29/23 18:53 Acetaminophen 500mg Tab PO 11/29/23 18:42 1,000 mg ONCE ONE Administration Dexamethasone Sodium Phosphate 10 mg 11/29/23 18:41 11/29/23 18:59 Dexamethasone 4mg/Ml 1ml Vial IV 11/29/23 18:42 10 mg ONCE ONE Administration Fentanyl Citrate 25 mcg 11/29/23 19:44 11/29/23 19:59 Fentanyl 100mcg/2ml Vial IV 11/29/23 19:45 25 mcg ONCE ONE Administration Ceftriaxone Sodium 2 gm/ 100 mls @ 200 mls/hr 11/29/23 19:15 11/29/23 19:33 Sodium Chloride IV 12/09/23 19:14 200 mls/hr Q24H PERNELL Administration Ceftriaxone Sodium 2 gm/ 100 mls @ 200 mls/hr 11/29/23 19:43 11/29/23 19:52 Sodium Chloride IV 11/29/23 19:44 Not Given ONCE ONE Ketorolac Tromethamine 30 mg 11/29/23 18:41 11/29/23 18:53 Ketorolac 30mg/Ml Vial IV 11/29/23 18:42 30 mg ONCE ONE Administration Ondansetron HCl 4 mg 11/29/23 18:41 11/29/23 18:54 Ondansetron 4mg/2ml Vial IV 11/29/23 18:42 4 mg ONCE ONE Administration Tetracycl/Hydrocort/Nystatin/Diphen 15 ml 11/29/23 19:07 11/29/23 19:33 Magic Mouthwash 300ml Bottle PO 11/29/23 19:08 15 ml ONCE ONE Administration ORDERS Category Date Time Status CRP [C-Reactive Protein] Stat Lab 11/29/23 17:05 Completed ESR [Erythrocyte Sedimentation Rate] Stat Lab 11/29/23 17:05 Completed Medical Decision Narrative: In summary, this patient is a 58-year-old female presenting to the Emergency Department for evaluation of worsening sore throat and difficulty swallowing in the setting of known strep infection. Differential diagnoses considered include but are not limited to strep infection, failed outpatient treatment, viral pharyngitis, bacterial pharyngitis, peritonsillar abscess, retropharyngeal abscess. Ruling out the most morbid conditions drove assessment. It should be noted patient's history includes hypertension, hyperlipidemia, hypothyroidism which may or may not be at goal therapy. This complicates all aspects of care by increasing patient's risk for morbidity. I reviewed patient's past medical records and noted outpatient CT scan which is concerning for peritonsillar abscess. On exam, the patient is sitting upright in bed in no acute distress. She has significant pain with swallowing but is tolerating her secretions with no drooling, trismus, or stridor. No evidence of airway compromise. Vitals are reassuring on cardiac telemetry. I independently interpreted outpatient CT scan prior to the radiologist read and noted peritonsillar abscess. Please see their read for final interpretation. Labs were obtained that demonstrated mild leukocytosis, elevated inflammatory markers. On reassessment, patient had minimal improvement after administration of IV Toradol, dexamethasone, oral Tylenol, Magic mouthwash. She was given IV fentanyl and Rocephin. She still states that she feels like she cannot swallow, though she is in no distress. After shared decision-making with patient and family, they do not feel comfortable going home and thus I called [facility] for ENT consultation. They advised I would be happy to evaluate the patient in the ED. Dr. Wright accepted the patient to [facility] ED for evaluation. After shared benefit and risk versus benefit explained, they elected to go POV. Since the patient has no airway compromise on assessment I feel that this is acceptable. They were given paperwork and disc. Patient left to go POV in stable condition with instruction to proceed directly to [facility] ED. Critical Care Critical Care Time Critical Care Time: No
[2023-11-29] MEDS: KETOROLAC 30MG/ML VIAL 30 MG IV (18:53)
[2023-11-29] MEDS: ACETAMINOPHEN 500MG TAB 1000 MG PO (18:53)
[2023-11-29] MEDS: ONDANSETRON 4MG/2ML VIAL 4 MG IV (18:54)
[2023-11-29] MEDS: DEXAMETHASONE 4MG/ML 1ML VIAL 10 MG IV (18:59)
[2023-11-29 19:02] VITALS: BP 173/93; PULSE 87; O2SAT 98
[2023-11-29 19:23] LABS: C-Reactive Protein 39.6 mg/L (0-4)
[2023-11-29] MEDS: MAGIC MOUTHWASH 300ML BOTTLE 15 ML PO (19:33)
[2023-11-29] MEDS: CEFTRIAXONE SODIUM 2 GM in 0.9 % SODIUM CHLORIDE 100 ML IV (19:33)
[2023-11-29 19:50] LABS: Erythrocyte Sedimentation Rate 16 mm/hr (0-30)
[2023-11-29] MEDS: FENTANYL 100MCG/2ML VIAL 25 MCG IV (19:59)
--- NOTE | 2023-11-29 20:05 | PC.NURSE ---
pt medicated per MAR. Pt reports pain is better than when she came in
--- NOTE | 2023-11-29 20:14 | PC.NURSE ---
Dr. Lowery s/w [facility] for transfer
[2023-11-29 20:35] VITALS: BP 127/74; PULSE 88; RESP 16; TEMP 36.7; O2SAT 99
== END 2023-11-29 20:36 | disposition short-term general hospital (02) ==
PROVIDERS: Emergency Provider Emergency Medicine; PCP Internal Medicine Adolescent Medicine
DX: J36 Peritonsillar abscess (principal)
CPT/HCPCS: 85651; 86140; 96374; 96375; 99284; J0696; J1100; J1885; J2405; J3010

== ENCOUNTER 2024-06-14 09:50 | Outpatient (CLI) | payer BC, MEDICARE, SELFPAY ==
--- OUTSIDE RECORDS SUMMARY | 2024-06-14 09:52 | XMS_ITS | Data Portability ---
Author Organization [facility] telehealth Address [address] [place] [address] Assessment Encounter Date Assessment Date Assessment LastModified by Organization Details LastModified Time 08/30/2022 08/30/2022 57yo F presents for one month post-op visit. She is doing well, no concerns. Incisions appear clean and dry, healing well. Spec exam reveal no abnormal vaginal discharge. Vaginal dryness noted. Recommended DHEA vaginal suppositories. Bimanual exam shows no prolapse, surgery is holding up well. Pt ok'd to have intercourse. Offered FemiLift. Called in DHEA vaginal suppositories to C&C. She is due for DEXA, will write order. Pt will RTC for WWE, sooner if needed. [email or web address] Not available 08/30/2022 11:34:19 11/13/2023 11/13/2023 58 y/o presents for non-OB ULS. She reports that her bladder is prolapsing. She had a laparoscopic sacrocolpopexy 08/05. Speculum exam performed and vaginal dryness noted, routine culture collected. Physical exam reveals midline and lateral cystocele. ULS reveals residual urine of 280 mL. No funneling of bladder. Inserted cube #2 pessary. Had patient try to urinate after pessary insertion but she had no urge to go. Patient does report having to get up at night to urinate. Ordered Flomax to help patient empty her bladder. Discussed pessary versus prolapse surgery with patient at length and answered all patient's questions. Emptied patient's bladder with catheter. 230 mL of urine was emptied and a urine sample was collected for culture. Discussed vaginal DHEA suppositories to strengthen patient's vaginal wall. Removed size #2 and changed to #3 cube pessary for patient and ordered Paty yanez. Patient will try pessary but is still interested in another prolapse surgery. Will schedule patient for paravaginal defect repair (06162) if pessary proves unsuccessful. [email or web address] Not available 11/13/2023 11:40:06 01/08/2024 01/08/2024 59 yo F her e today for post op visit. WNWD female in NAD. Pt is doing well since surgery. Pt had RA Lap PVDR w use of Biotissue with Dr. Wilder. Has had no bleeding. Pain was tolerable with OTC medications and she is no longer in pain. Pt appears well on physical examination. Incisions are well healed. No erythema, drainage or separation noted. Suture removed from incision in RLQ. Discussed postop restrictions. Recommended daily Kegals. Offered pelvic floor PT, pt will think about it. RTC for WWE or PRN. ROS neg X HPI. Meds reviewed and accurate. Pleasant mood. [email or web address] Not available 01/08/2024 09:42:31 05/30/2024 05/30/2024 59 yo F presents for possible recurrent prolapse. She states that she does not have any bladder leakage or constipation. She states that she has been very careful about lifting things. ULS reveals no tenderness. Residual urine was seen in the bladder measuring 388 mL. Pt used the restroom and resdiual urine was re measured. New amount of residual urine seen in the bladder was 128 mL. Spec exam reveals cervix and upper anterior part of vagina to be prolapsing. Pt has tried pessaries in the pass, and states that she does not want to try one again due to adverse reactions. Urine dipstick reveals trace of protein and leukocytes. It was discussed with pt that she will need a repeat sacrocolpopexy. Procedure will be scheduled today, and Pre-op BW will be done today. It was discussed with pt that she may need a pessary while she is healing from procedure. She will RTC for post-op f/u or sooner if needed. [email or web address] Not available 05/30/2024 14:51:22 Plan of Treatment Reminders Order Date Submit Date Provider Last Modified By Organization Details Last Modified Time Details Appointments SURGERY 2024 09:30A Ya Wilder MD Not available Not available Not available Lab CBC w/ auto diff 2024 025 [facility] ([facility]), [address] [place] [address], [id number], 05/31/2024 12:42:38 CMP, serum or plasma 2024 025 [facility] ([facility]), [address] [place] [address], [id number], 05/31/2024 12:42:39 HbA1c (hemoglo bin A1c), blood 2024 025 [facility] ([facility]), [address] [place] [address], [id number], 05/31/2024 12:42:39 TSH, serum or plasma 2024 025 [facility] ([facility]), [address] [place] [address], [id number], 05/31/2024 12:42:40 Referral None recorded . Procedures None recorded . Surgeries None recorded . Imaging None recorded . Medication Orders Trimo-Sa n Jelly 0.025 %-0.01 % vaginal 2023 024 [facility], [address] [place] [address], [id number], 01/08/2024 09:20:59 Flomax 0.4 mg capsule 2023 024 [facility], [address] [place] [address], [id number], 11/13/2023 11:41:27 Patient TargetsNo targets recorded. Patient Instructions Encounter Date Encounter Id Patient Instructions Last Modified By Organization Details Last Modified Time 05/30/2024 [id number] Surgery indicate d based on pt's past history and recurring symptoms: and sacrocolpopexy (11789). With use of [place] tissue patch and BioD Diagnosis: Cervical stump prolapse [email or web address] Not available 05/30/2024 15:54:00 Reason for Referral None Reported. Results Created Date Observation Date Name Description Value Unit Range Abnormal Flag Note LastModifiedBy Organization Detail LastModifiedTime 05/31/19 25 05/31/2024 CBC WITH PLATE LET AND DIFFE RENTI AL WBC 6.9 K/uL 3.8-11 .5 Not Available [facility] ([facility]) [address] [place] [address] Dr Kimball, [place], [address], 05/31/2024 12:42:38 05/31/19 25 05/31/2024 CBC WITH PLATE LET AND DIFFE RENTI AL red blood cell count (RBC) 4.97 M/mm3 3.60-5 .30 Not Available [facility] ([facility]) [address] [place] [address] Dr Kimball, [place], [address], 05/31/2024 12:42:38 05/31/19 25 05/31/2024 CBC WITH PLATE LET AND DIFFE RENTI AL hemoglobin (HGB) 15.2 gm/dL 11.5-1 5.5 Not Available [facility]) [address] [place] [address] Dr Kimball, [place], [address], 05/31/2024 12:42:38 05/31/19 25 05/31/2024 CBC WITH PLATE LET AND DIFFE RENTI AL hematocrit (HCT) 46.9 % 35.2-4 6.4 high Not Available [facility] ([facility]) [address] [place] [address] Dr Kimball, [place], [address], 05/31/2024 12:42:38 05/31/19 25 05/31/2024 CBC WITH PLATE LET AND DIFFE RENTI AL MCV 94.4 fL 79.0-9 9.0 Not Available [facility] ([facility]) [address] [place] [address] Dr Kimball, [place], [address], 05/31/2024 12:42:38 05/31/19 25 05/31/2024 CBC WITH PLATE LET AND DIFFE RENTI AL MCH 30.6 pg 26.9-3 5.0 Not Available [facility] ([facility]) [address] [place] [address] Dr [address], [place], [address], 05/31/2024 12:42:38 05/31/19 25 05/31/2024 CBC WITH PLATE LET AND DIFFE RENTI AL MCHC 32.4 g/dL 30.4-3 4.8 Not Available [facility] ([facility]) [address] [place] [address] Dr Kimball, [place], [address], 05/31/2024 12:42:38 05/31/19 25 05/31/2024 CBC WITH PLATE LET AND DIFFE RENTI AL RDW 43.8 fL 38.6-5 3.8 Not Available [facility] ([facility]) [address] [place] [address] Dr Kimball, [place], [address], 05/31/2024 12:42:38 05/31/19 25 05/31/2024 CBC WITH PLATE LET AND DIFFE RENTI AL platelet count 310 K/cum m 137-39 7 Not Available [facility] ([facility]) [address] [place] [address] Dr Kimball, [place], [address], 05/31/2024 12:42:38 05/31/19 25 05/31/2024 CBC WITH PLATE LET AND DIFFE RENTI AL neutrophils automated 57.1 % 41.0-7 7.0 Not Available [facility] ([facility]) [address] [place] [address] Dr Kimball, [place], [address], 05/31/2024 12:42:38 05/31/19 25 05/31/2024 CBC WITH PLATE LET AND DIFFE RENTI AL lymphocytes automated 34.6 % 14.0-4 8.0 Not Available [facility] ([facility]) [address] [place] [address] Dr Kimball, [place], [address], 05/31/2024 12:42:38 05/31/19 25 05/31/2024 CBC WITH PLATE LET AND DIFFE RENTI AL monocytes automated 6.2 % 4.0-13 .0 Not Available [facility] ([facility]) [address] [place] [address] Dr Kimball, [place], [address], 05/31/2024 12:42:38 05/31/19 25 05/31/2024 CBC WITH PLATE LET AND DIFFE RENTI AL eosinophils automated 1.4 % 0.0-8. 0 Not Available [facility]) [address] [place] [address] Dr Kimball, [place], [address], 05/31/2024 12:42:38 05/31/19 25 05/31/2024 CBC WITH PLATE LET AND DIFFE RENTI AL basophils automated 0.4 % 0.0-1. 5 Not Available [facility] ([facility]) [address] [place] [address] Dr Kimball, [place], [address], 05/31/2024 12:42:38 05/31/19 25 05/31/2024 CBC WITH PLATE LET AND DIFFE RENTI AL immature granulocyte automated 0.3 % 0.0-1. 0 Not Available [facility]) [address] [place] [address] Dr Kimball, [place], [address], 05/31/2024 12:42:38 05/31/19 25 05/31/2024 COMPR EHENS KATELYN METAB OLIC PANEL (CMP) sodium 142 mmol/ L 135-14 5 Not Available [facility]) [address] [place] [address] Dr Kimball, [place], [address], 05/31/2024 12:42:39 05/31/19 25 05/31/2024 COMPR EHENS KATELYN METAB OLIC PANEL (CMP) potassium 4.2 mmol/ L 3.5-5. 3 Not Available [facility] ([facility]) [address] [place] [address] Dr Kimball, [place], [address], 05/31/2024 12:42:39 05/31/19 25 05/31/2024 COMPR EHENS KATELYN METAB OLIC PANEL (CMP) chloride 100 mmol/ L 97-108 Not Available [facility] ([facility]) [address] [place] [address] Dr Kimball, [place], [address], 05/31/2024 12:42:39 05/31/19 25 05/31/2024 COMPR EHENS KATELYN METAB OLIC PANEL (CMP) CO2 25 mmol/ L 22-32 Not Available [facility] ([facility]) [address] [place] [address] Dr Kimball, [place], [address], 05/31/2024 12:42:39 05/31/19 25 05/31/2024 COMPR EHENS KATELYN METAB OLIC PANEL (CMP) glucose 97 mg/dL 65-99 Not Available [facility] ([facility]) [address] [place] [address] Dr Kimball, [place], [address], 05/31/2024 12:42:39 05/31/19 25 05/31/2024 COMPR EHENS KATELYN METAB OLIC PANEL (CMP) BUN 15 mg/dL 6-20 Not Available [facility] ([facility]) [address] [place] [address] Dr Kimball, [place], [address], 05/31/2024 12:42:39 05/31/19 25 05/31/2024 COMPR EHENS KATELYN METAB OLIC PANEL (CMP) creatinine 0.82 mg/dL 0.50-1 .00 Not Available [facility] ([facility]) [address] [place] [address] Dr Kimball, [place], [address], 05/31/2024 12:42:39 05/31/19 25 05/31/2024 COMPR EHENS KATELYN METAB OLIC PANEL (CMP) calcium 9.7 mg/dL 8.6-10 .4 Not Available [facility] ([facility]) [address] [place] [address] Dr Kimball, [place], [address], 05/31/2024 12:42:39 05/31/19 25 05/31/2024 COMPR EHENS KATELYN METAB OLIC PANEL (CMP) eGFR by creatinine 83 mL/mi n/1.7 3m2 >59 Not Available [facility] ([facility]) [address] [place] [address] Dr Kimball, [place], [address], 05/31/2024 12:42:39 05/31/19 25 05/31/2024 COMPR EHENS KATELYN METAB OLIC PANEL (CMP) protein 7.9 g/dL 6.0-8. 3 Not Available [facility] ([facility]) [address] [place] [address] Dr Kimball, [place], [address], 05/31/2024 12:42:39 05/31/19 25 05/31/2024 COMPR EHENS KATELYN METAB OLIC PANEL (CMP) albumin 4.8 g/dL 3.5-5. 3 Not Available [facility] ([facility]) [address] [place] [address] Dr Kimball, [place], [address], 05/31/2024 12:42:39 05/31/19 25 05/31/2024 COMPR EHENS KATELYN METAB OLIC PANEL (CMP) alkaline phosphatase 99 IU/L 35-121 Not Available [facility] ([facility]) [address] [place] [address] Dr Kimball, [place], [address], 05/31/2024 12:42:39 05/31/19 25 05/31/2024 COMPR EHENS KATELYN METAB OLIC PANEL (CMP) ALT (SGPT) 25 IU/L <5-47 Not Available [facility] ([facility]) [address] [place] [address] Dr Kimball, [place], [address], 05/31/2024 12:42:39 05/31/19 25 05/31/2024 COMPR EHENS KATELYN METAB OLIC PANEL (CMP) AST (SGOT) 18 IU/L <5-40 Not Available [facility] ([facility]) [address] [place] [address] Dr Kimball, [place], [address], 05/31/2024 12:42:39 05/31/19 25 05/31/2024 COMPR EHENS KATELYN METAB OLIC PANEL (CMP) bilirubin, total 0.5 mg/dL <0.2-1 .2 Not Available [facility] ([facility]) [address] [place] [address] Dr Kimball, [place], [address], 05/31/2024 12:42:39 05/31/19 25 05/31/2024 COMPR EHENS KATELYN METAB OLIC PANEL (CMP) A/G ratio 1.5 1.1-2. 5 Not Available [facility] ([facility]) [address] [place] [address] Dr Kimball, [place], [address], 05/31/2024 12:42:39 05/31/19 25 05/31/2024 HEMOG LOBIN A1C hemoglobin A1C 5.9 % <5.7 high The follo wing HbA1c range s recom hector d by the [place] [employer] Diabe titi Assoc iatio n (ADA) may be used as an aid in the diagn osis of diabe titi melli tus. HbA1c Sugge sted Diagn osis >=6.5 % Diabe tic 5.7% - 6.4% Pre-D iabet ic <5.7% Non-D iabet ic Not Available [facility] ([facility]) [address] [place] [address] Dr Kimball, [place], [address], 05/31/2024 12:42:39 05/31/1905/31/2024 HEMOG LOBIN A1C estimated average glucose (EAG) 123 mg/dL Estim ated Diana ge Gluco se (eAG) is calcu lated using the equat ion eAG = (28.7 x HbA1c ) - 46.7 based on the guide lines estab lishe d by the ADA. If the patie nt has certa in disea ses inclu ding kidne y disea se, sickl e cell anemi a, thala ssemi a, or is takin g medic ation s such as dapso ne, eryth ropoi etin, or iron, eAG shoul d not be evalu ated. Not Available [facility] ([facility]) [address] [place] [address] Dr Kimball, [place], [address], 05/31/2024 12:42:39 05/31/19 25 05/31/2024 TSH TSH 0.38 mU/L 0.43-5 .25 low Not Available [facility] ([facility]) [address] [place] [address] Dr Kimball, [place], [address], 05/31/2024 12:42:40 09/27/19 23 09/23/2022 DEXA No observ ation record ed. [email or web address] [facility] [address] [place] [address], [phone], 11/15/2023 14:24:23 09/27/19 23 09/23/2022 DEXA No observ ation record ed. [email or web address] [facility] [address] [place] [address], [phone], 11/08/2023 22:08:37 Result Notes None recorded. Problems Name Problem SNOMED Code Status Onset Date Resolution Date Notes Provider Name and Address Organization Details Recorded Time Acute urinary tract infection 585221516 Active 024 [facility] 15:09:59 Problem Notes None recorded. Procedures Surgical History Date Name Laterality Status Provider Name and Address Organization Details Recorded Time 05/31/19 25 Non-OB ULS completed MD Nadir [address], [place], [address], [facility] 05/30/2024 14:39:05 12/04/19 24 laparoscopic repair of paravaginal defect completed [facility] 01/08/2024 08:43:00 11/13/19 24 Other completed MD Nadir [address], [place], [address], [facility] 11/13/2023 11:26:25 11/13/19 24 Pessary Insertion completed MD Nadir [address], [place], [address], [facility] 11/13/2023 11:35:08 11/13/19 24 Non-OB ULS completed MD Nad[address], [place], [address], [facility] 11/13/2023 11:10:03 09/24/19 23 Most Recent Bone Density completed [facility] 11/13/2023 09:31:34 07/06/19 23 Non-OB ULS completed MD Nadir [address], [place], [address], [facility] 07/05/2022 12:00:39 02/13/19 20 Date of Last Mammogram completed [facility] 11/13/2023 09:31:38 Cholecystectomy completed [facility] 11/13/2023 09:32:04 sacrocolpopexy completed [facility] 11/13/2023 09:33:23 supracervical hysterectomy completed [facility]aux [facility] 05/30/2024 14:22:28 Imaging Results Imaging Date Name Status LastModified by Organizatio n Details LastModified Time 09/23/2022 DEXA completed [email or web address] [facility] [address] [place], [address], 11/15/2023 14:24:23 09/23/2022 DEXA completed [email or web address] [facility] [address] [place], [address], 11/08/2023 22:08:37 Procedure Notes None recorded. Medical Equipment None Reported. Allergies Allergen ID Allergen Name Allergen Category Reaction Reaction Severity Criticality Documentation Date Start Date Code Code System Note Provider Name and Address Organization Details Recorded Time 3405 morphine medicatio n other severe Not available 07/05/2022 7052 RxNorm heart stopp ed Chelsie morse, [facility] 11:31:45 Medications Name Sig Start Date Stop Date Status Note LastModified by Organization Details LastModified Time Flomax 0.4 mg capsule Take 1 capsule every day by oral route for 30 days. 2023 active Not Available Not Available Not Avai lable prednisone 10 mg tablet TAKE 1 TABLET BY MOUTH TWICE DAILY FOR 5 DAYS 07/05 completed Not Available Not Available Not Available atorvastati n 20 mg tablet active Not Available Not Available Not Available atorvastati n 10 mg tablet 07/05 completed Not Available Not Available Not Available azithromyci n 250 mg tablet 01/07 completed Not Available Not Available Not Available ondansetron HCl 4 mg tablet active PRN Not Available Not Available Not Available famotidine 40 mg tablet active Not Available Not Available Not Available ciprofloxac in 500 mg tablet Take 1 tablet twice a day by oral route for 5 days. 01/07 completed Not Available Not Available Not Available sulfamethox azole 800 mg-trimetho prim 160 mg tablet TAKE 1 TABLET BY MOUTH TWICE DAILY FOR 10 DAYS 07/05 completed Not Available Not Available Not Available levothyroxi ne 100 mcg tablet active Not Available Not Available Not Available oxycodone-a cetaminophe n 5 mg-325 mg tablet 01/07 completed Not Available Not Available Not Available amoxicillin 875 mg tablet 11/12 completed Not Available Not Available Not Available benzonatate 100 mg capsule TAKE 1 CAPSULE BY MOUTH THREE TIMES DAILY NEEDED FOR COUGH 07/05 completed Not Available Not Available Not Available lisinopril 10 mg tablet active Not Available Not Available Not Available diclofenac sodium 75 mg tablet,molly yed release active Not Available Not Available Not Available gabapentin 100 mg capsule 07/05 completed Not Available Not Available Not Available methylpredn isolone 4 mg tablets in a dose pack 01/07 completed Not Available Not Available Not Available Vitamin D2 1,250 mcg (50,000 unit) capsule 07/05 completed Not Available Not Available Not Available ondansetron 4 mg disintegrat ing tablet 01/07 completed Not Available Not Available Not Available amoxicillin 875 mg-potassiu m clavulanate 125 mg tablet 01/07 completed Not Available Not Available Not Available pregabalin 75 mg capsule active Not Available Not Available Not Available Lyrica 50 mg capsule Take 1 capsule 3 times a day by oral route. 01/07 completed Not Available Not Available Not Available Trimo-Scott Jelly 0.025 %-0.01 % vaginal Insert one applicato r once a week. 01/07 completed Not Available Not Available Not Available levothyroxi ne 100 mcg capsule Take 1 capsule every day by oral route. 05/30 completed Not Available Not Available Not Available [facility] COVID-19 Antigen Rapid Home Test kit 07/05 completed Not Available Not Available Not Available Vitals Date Recorded Body height Body mass index (BMI) Body weight Systolic blood pressure Diastolic blood pressure Provider Name and Address Organization Details Last Updated DateTime 08/30/2022 162.56 cm 30.4 kg/m2 79666.57 g 120 mm[Hg] 78 mm[Hg] [facility] 3 11:02:04 Date Recorded Body height Body mass index (BMI) Body weight Systolic blood pressure Diastolic blood pressure Provider Name and Address Organization Details Last Updated DateTime 11/13/2023 162.56 cm 31.6 kg/m2 56540.71 g 124 mm[Hg] 80 mm[Hg] [facility] 4 09:30:33 Date Recorded Body height Body mass index (BMI) Body weight Systolic blood pressure Diastolic blood pressure Provider Name and Address Organization Details Last Updated DateTime 01/08/2024 162.56 cm 30.2 kg/m2 88969.26 g 128 mm[Hg] 84 mm[Hg] Jessica [facility] 4 09:13:00 Date Recorded Body height Body mass index (BMI) Body weight Systolic blood pressure Diastolic blood pressure Provider Name and Address Organization Details Last Updated DateTime 05/30/2024 162.56 cm 31.2 kg/m2 70753.81 g 154 mm[Hg] 88 mm[Hg] Margaux [facility] 5 14:17:07 Social History Question Answer Notes LastModified by Organizat ion Details LastModified Time Tobacco Smoking Status Former Smoker 11-12 years but stopped [facility] 07/05/2022 11:35:21 What Is Your Level Of Alcohol Consumption? None Information not available 07/05/2022 What Is Your Relationship Status? [email or web address] Information not available 07/05/2022 Are You Sexually Active? Yes Not Currently Information not available 07/05/2022 Do You Use Any Illicit Or Recreational Drugs? No [email or web address] Information not available 07/05/2022 Do You Or Have You Ever Used Any Other Forms Of Tobacco Or Nicotine? No [email or web address] Information not available 07/05/2022 Sex: Unknown Functional Status None recorded. Mental Status None recorded. Family History Nothing Reported. Medical History No medical history recorded. Gynecological History Statement/Question Response Who is your Primary Care Physician Dr. Sriram Schultz If Post Menopausal, Age at Menopause 52 Abnormal Pap N Date of Last Mammogram 02/13/2019 Most Recent Bone Density 09/23/2022 Are your periods regular? N HPV Vaccine N Date of Last Pap Smear Age at Menarche 13 Colonoscopy Hormone Replacement Therapy N Obstetrics History GPAL:G 3 P 2 0 1 2 Type Value Full Term 2 Living 2 Ectopics 1 Total 3 Past Encounters Encounter ID Performer Location Encounter Start Date Encounter Closed Date Diagnosis/Indication Diagnosis SNOMED-CT Code Diagnosis ICD10 Code Diagnosis Note [id number] MD JENNA Gordon MD [address] [place] [address] 07/05/2022 09:30:13 07/05/2022 12:26:32 Difficulty passing urine 585024247 R39.198 Retention of urine 82851 4002 R33.9 Vaginal discharge 775733 006 N89.8 will culture via PCL Midline cystocele 740191 003 N81.11 Lateral cystocele 206861 001 N81.12 Prolapse o f uterine cervical stump 298777284 N81.85 Pre-surger y evaluation 359349186 Z01.818 Dysuria 38276327 R30.0 will culture via PCL [id number] MD JENNA Gordon MD [address] [place] [address] 08/30/2022 10:39:00 08/30/2022 11:46:00 Postoperative visit [id number] Z09 Vaginal dryness 21208618 N89.8 [id number] MD JENNA Gordon MD [address] [place] [address] 11/13/2023 09:03:16 11/13/2023 12:11:33 Midline cystocele 409877177 N81.11 Vaginal dryness 68002956 N89.8 Incomplete emptying of urinary bladder 570225620 R39.14 Lateral cystocele 997474 001 N81.12 Fitting of pessary 85940 002 Z46.89 [id number] ADRIANO Bryant MD [address] [place] [address] 01/08/2024 08:58:11 01/08/2024 09:46:09 Postoperative visit 371445581 Z09 [id number] MD JENNA Gordon MD [address] [place] [address] 05/30/2024 11:19:16 05/30/2024 14:52:00 Prolapse of uterine cervical stump 178122266 N81.85 Pre-surger y evaluation 463292617 Z01.818 Health Concerns Section Related Observation LastModified by Organization Detai ls LastModified Time None Recorded Concern Status LastModified by Organization Details LastModified Time None Recorded Advance Directives Directive None Recorded Payers Encounter Date Sequence Insurance Name Policy Number Policy Melendez Covered Member ID Melendez Member ID Guarantor Name 08/30/2022 1 [place] [id number] 2 Ye Venegas [id number] 55 Verito Theo 11/13/2023 1 [place] [id number] 2 Ye Venegas [id number] 55 Verito [place] 01/08/2024 1 [place] [id number] 2 Ye Venegas [id number] 55 Verito Theo 05/30/2024 1 [place] [id number] 2 Ye Venegas [id number] 55 Verito Theo Notes Date Note Type Note Provider Name and Address Organization Details Recorded Time 08/30/2022 text/html Pt here for her one month post-op visit. She is doing well, no concerns. MD [address], [place], [address], [facility] 08/30/2022 11:34:26 11/13/2023 text/html 58 y/o pres ents for non-OB ULS. She reports that her bladder is prolapsing. She had a laparoscopic sacrocolpopexy 08/05. MD [address], [place], [address], [facility] 11/13/2023 11:47:16 01/08/2024 text/html Post-OpReported bypatient.Onset/Adrián ng:date of surgery: (12-04-2023) Quality:procedure: (RA Lap PVDR w use of Biotissue) Associated Symptoms:incision healing poorly; no fatigue; normal appetite; no constipation; no nausea; no emesis; pain improving; no pain; no fever; no bleeding; no dysuria/urinary symptoms; no diarrhea ADRI[address] , [place], [address], [facility] 01/08/2024 09:42:50 05/30/2024 text/html Pt presents for possible recurrent prolapse. She states that she does not have any bladder leakage or constipation. She states that she has been very careful about lifting things. She has had multiple prolapse surgeries in the past. ULS reveals MD [address], [place], [address], [facility] 05/30/2024 15:54:03 OBGyn Episode Ob Episode Information Episode Created Date Number of Fetuses Patient Bloodtype Patient rh Status Prepregnancy Weight lbs Domestic Partner Domestic Partner Phone Father Name Thinner Sprayer Status 11/13/19 24 1 DELETED Fetus Data First Name Last Name Admitted to NICU Weight (g) Sex Living Outcome Pediatric Complications Fetus ID Race Codes Race Delivery Type [id number] Torsten Calculation Initial Torsten Date Initial Exam Date Initial Exam Provider Initial Ultrasound Date Last Menstrual Period Date Ultra Sound Weeks Gestation 11/13/2023 0 Eighteen To Twenty Week Torsten Update Ultra Sound Date Fundal Height At Umbil Quickening Date Ultra Sound Latest Weeks Gestation Final Torsten Confirmed By Final Torsten Confirmed Date Final Torsten Date Ultra Sound Latest Days Gestation 0 0 Menstrual History Last Menstrual Date Menses Monthly On Bcp Conception Prior Menses Frequency Hcg Plus Date Menarche Onset Age Delivery Information Delivery Date Delivery Type Labor Anesthesia Weeks Gestation Incision Type Labor Labor Length Hrs Delivered By Post Complications Tubal Sterilization Discharge Date Comments Discharge Information Feeding Method Contraceptive Method Maternal HG B and HCT Levels
--- OUTSIDE RECORDS SUMMARY | 2024-06-14 09:52 | XMS_ITS ---
Author Organization Unknown Medications Medication Instructions Effective Dates (start - stop) Status lisinopril 10 MG Oral Tablet 202 04-17-29:00:00.000+00: 00 - Completed lisinopril 10 MG Oral Tablet 04-14-09:00:00.000+00: 00 - Completed lisinopril 10 MG Oral Tablet 04-17-02:00:00.000+00: 00 - Completed lisinopril 10 MG Oral Tablet 04-15-06:00:00.000+00: 00 - Completed lisinopril 10 MG Oral Tablet 04-17-03:00:00.000+00: 00 - Completed diclofenac sodium 75 MG Margaret yed Release Oral Tablet 7530-08-79D76:00:00.000+00: 00 - Completed famotidine 40 MG Oral Tablet 04-15-06:00:00.000+00: 00 - Completed ergocalciferol 1.25 MG Oral Capsule 6249-69-06R90:00:00.000+00: 00 - Completed famotidine 40 MG Oral Tablet 03-22-27:00:00.000+00: 00 - Completed diclofenac sodium 75 MG Margaret yed Release Oral Tablet 4765-87-90C49:00:00.000+00: 00 - Completed famotidine 40 MG Oral Tablet 03-27-07:00:00.000+00: 00 - Completed lisinopril 10 MG Oral Tablet 03-22-27:00:00.000+00: 00 - Completed diclofenac sodium 75 MG Margaret yed Release Oral Tablet 3171-04-41K30:00:00.000+00: 00 - Completed gabapentin 100 MG Oral Capsule 943-03-27Y33:00:00.000+00: 00 - Completed gabapentin 100 MG Oral Capsule 2 808-90-85A85:00:00.000+00: 00 - Completed gabapentin 100 MG Oral Capsule 2 658-88-39C67:00:00.000+00: 00 - Completed diclofenac sodium 75 MG Margaret yed Release Oral Tablet 9361-02-39W53:00:00.000+00: 00 - Completed famotidine 40 MG Oral Tablet 202 03-26-14:00:00.000+00: 00 - Completed lisinopril 10 MG Oral Tablet 03-26-27:00:00.000+00: 00 - Completed famotidine 40 MG Oral Tablet 03-23-24:00:00.000+00: 00 - Completed diclofenac sodium 75 MG Margaret yed Release Oral Tablet 3983-76-96O00:00:00.000+00: 00 - Completed lisinopril 10 MG Oral Tablet 202 03-24-21:00:00.000+00: 00 - Completed famotidine 40 MG Oral Tablet 202 04-13-12:00:00.000+00: 00 - Completed famotidine 40 MG Oral Tablet 202 04-17-03:00:00.000+00: 00 - Completed lisinopril 10 MG Oral Tablet 03-23-24:00:00.000+00: 00 - Completed famotidine 40 MG Oral Tablet 04-14-09:00:00.000+00: 00 - Completed lisinopril 10 MG Oral Tablet 04-13-12:00:00.000+00: 00 - Completed famotidine 40 MG Oral Tablet 202 03-24-22:00:00.000+00: 00 - Completed ergocalciferol 1.25 MG Oral Capsule 9462-48-56F53:00:00.000+00: 00 - Completed diclofenac sodium 75 MG Margaret yed Release Oral Tablet 5495-40-06L93:00:00.000+00: 00 - Completed atorvastatin 10 MG Oral Tablet 2 941-38-96T28:00:00.000+00: 00 - Completed levothyroxine sodium 0.1 MG Oral Tablet 2914-69-56M11:00:00.000+00: 00 - Completed levothyroxine sodium 0.1 MG Oral Tablet 6910-01-67S87:00:00.000+00: 00 - Completed levothyroxine sodium 0.1 MG Oral Tablet 0843-43-46Q86:00:00.000+00: 00 - Completed levothyroxine sodium 0.1 MG Oral Tablet 6691-29-68P96:00:00.000+00: 00 - Completed atorvastatin 10 MG Oral Tablet 2 949-51-07P70:00:00.000+00: 00 - Completed - 7872-02-34S63:00 :00.000+00: 00 - Completed - 6521-73-18W50:00 :00.000+00: 00 - Completed levothyroxine sodium 0.1 MG Oral Tablet 3733-34-45K65:00:00.000+00: 00 - Completed levothyroxine sodium 0.1 MG Oral Tablet 3650-51-17H41:00:00.000+00: 00 - Completed atorvastatin 10 MG Oral Tablet 2 571-13-35P28:00:00.000+00: 00 - Completed atorvastatin 10 MG Oral Tablet 2 783-56-54Q66:00:00.000+00: 00 - Completed diclofenac sodium 75 MG Margaret yed Release Oral Tablet 2780-38-56B14:00:00.000+00: 00 - Completed atorvastatin 10 MG Oral Tablet 2 202-09-41B10:00:00.000+00: 00 - Completed - 2448-67-45K35:00 :00.000+00: 00 - Completed levothyroxine sodium 0.1 MG Oral Tablet 7855-12-29V62:00:00.000+00: 00 - Completed - 3730-87-26R40:00 :00.000+00: 00 - Completed levothyroxine sodium 0.1 MG Oral Tablet 6108-98-91Q04:00:00.000+00: 00 - Completed levothyroxine sodium 0.1 MG Oral Tablet 5662-69-67M85:00:00.000+00: 00 - Completed levothyroxine sodium 0.1 MG Oral Tablet 9055-35-33O60:00:00.000+00: 00 - Completed {6 (azithromycin 250 MG Oral Tablet) } Pack 7345-66-97A43:00:00.000+00: 00 - Completed levothyroxine sodium 0.1 MG Oral Tablet 1395-02-82K81:00:00.000+00: 00 - Completed lisinopril 10 MG Oral Tablet 04-19-27:00:00.000+00: 00 - Completed pregabalin 50 MG Oral Capsule 20 05-06-10:00:00.000+00: 00 - Completed atorvastatin 20 MG Oral Tablet 2 555-10-76F42:00:00.000+00: 00 - Completed - 5596-64-46V68:00 :00.000+00: 00 - Completed pregabalin 75 MG Oral Capsule 05-09-19:00:00.000+00: 00 - Completed - 8233-22-89M93:00 :00.000+00: 00 - Completed atorvastatin 20 MG Oral Tablet 2 902-87-23T63:00:00.000+00: 00 - Completed - 5543-32-39O12:00 :00.000+00: 00 - Completed pregabalin 50 MG Oral Capsule 07-04-23:00:00.000+00: 00 - Completed ondansetron 4 MG Disintegrat ing Oral Tablet 2661-83-51P34:00:00.000+00: 00 - Completed - 0054-17-95H86:00 :00.000+00: 00 - Completed atorvastatin 20 MG Oral Tablet 2 186-92-00I82:00:00.000+00: 00 - Completed atorvastatin 20 MG Oral Tablet 2 057-30-23C36:00:00.000+00: 00 - Completed ciprofloxacin 500 MG Oral Tablet 3120-37-01N98:00:00.000+00: 00 - Completed atorvastatin 20 MG Oral Tablet 2 702-91-78L01:00:00.000+00: 00 - Completed atorvastatin 10 MG Oral Tablet 2 064-58-23F43:00:00.000+00: 00 - Completed acetaminophen 325 MG / oxyco done hydrochloride 5 MG Oral Tablet 4805-74-31L62:00:00.000 +00: 00 - Completed sulfamethoxazole 800 MG / trimethoprim 160 MG Oral Tablet 3934-44-04W70:00:00.00 0+00: 00 - Completed Patient Care team information Name Category Status Period Participants - - Proposed period not known -
--- OUTSIDE RECORDS SUMMARY | 2024-06-14 09:52 | XMS_ITS | Continuity of Care Document ---
Author Organization [facility] SHERRI WILDER MD Address [address] [place] [address] Assessment Encounter Date Assessment Date Assessment LastModified by Organization Details LastModified Time 05/30/2024 05/30/2024 59 yo F presents for [...] pt that she will need a repeat sacrocolpopex y. Procedure will be scheduled today, and Pre-op [...] Lab CBC w/ auto diff 2024 025 [facility] ([facility]), [address] [place], [address], 05/31/2024 12:42:38 CMP, serum or plasma 2024 025 [facility] ([facility]), [address] [place], [address], 05/31/2024 12:42:39 HbA1c (hemoglo bin A1c), blood 2024 025 [facility] ([facility]), [address] [place], [address], 05/31/2024 12:42:39 TSH, serum or plasma 2024 025 [facility] ([facility]), [address] [place] [address], [address], 05/31/2024 12:42:40 Referral None recorded . Procedures None recorded . Surgeries None recorded . Imaging None recorded . Medication Orders None recorded . Patient TargetsNo targets recorded. Patient Instructions Encounter Date Encounter Id Patient Instructions Last Modified By Organization Details Last Modified Time 05/30/2024 [id number] Surgery indicate d based on pt's past history and recurring symptoms: and sacrocolpopexy (62665). With use of [place] tissue patch and BioD Diagnosis: Cervical stump prolapse [email or web address] Not available 05/30/2024 15:54:00 Reason for Referral None Reported. Problems Name Problem SNOMED Code Status Onset Date Resolution Date Notes Provider Name and Address Organization Details Recorded Time Acute urinary tract infection 121266417 Active 024 [facility] 4 15:09:59 Problem Notes None recorded. Procedures Surgical History Date Name Laterality Status Provider Name and Address Organization Details Recorded Time 05/31/19 25 Non-OB ULS completed Sherri Wilder MD [address] [facility], [place], [address], [facility] 05/30/2024 14:39:05 12/04/19 24 laparoscopic repair of paravaginal defect completed [facility] 01/08/2024 08:43:00 11/13/19 24 Other completed MD [address], [place], [address], [facility] 11/13/2023 11:26:25 11/13/19 24 Pessary Insertion completed MD [address], [place], [address], [facility] 11/13/2023 11:35:08 11/13/19 24 Non-OB ULS completed MD [address], [place], [address], [facility] 11/13/2023 11:10:03 09/24/19 23 Most Recent Bone Density completed [facility]ai [facility] 11/13/2023 09:31:34 07/06/19 23 Non-OB ULS completed MD [address], [place], [address], [facility] 07/05/2022 12:00:39 02/13/19 20 Date of Last Mammogram completed [facility] 11/13/2023 09:31:38 Cholecystectomy completed [facility] 11/13/2023 09:32:04 sacrocolpopexy completed [facility] 11/13/2023 09:33:23 supracervical hysterectomy completed [facility] 05/30/2024 14:22:28 Imaging Results None recorded. Procedure Notes None recorded. Medical Equipment None Reported. Allergies Allergen ID Allergen Name Allergen Category Reaction Reaction Severity Criticality Documentation Date Start Date Code Code System Note Provider Name and Address Organization Details Recorded Time 3405 morphine medicatio n other severe Not available 07/05/2022 7052 RxNorm heart stopp ed Chelsie [facility] 11:31:45 Medications Name Sig Start [...] completed Not Available Not Available Not Available [facility] COVID-19 Antigen Rapid Home Test kit 07/05 completed Not Available Not Available Not Available Vitals Date Recorded Body height Body mass index (BMI) Body weight Systolic blood pressure Diastolic blood pressure Provider Name and Address Organization Details Last Updated DateTime 05/30/2024 162.56 cm 31.2 kg/m2 83077.81 g 154 mm[Hg] 88 mm[Hg] [facility] 14:17:07 Social History Question Answer Notes LastModified by Organizat ion Details LastModified Time Tobacco Smoking Status Former Smoker 11-12 years but stopped [facility] 07/05/2022 11:35:21 What Is Your Level Of Alcohol Consumption? None [email or web address] Information not available 07/05/2022 What Is Your Relationship Status? [email or web address] Information not available 07/05/2022 Are You Sexually Active? Yes Not Currently Information not available 07/05/2022 Do You Use Any Illicit Or Recreational Drugs? No [email or web address] Information not available 07/05/2022 Do You Or Have You Ever Used Any Other Forms Of Tobacco Or Nicotine? No [email or web address] Information not available 07/05/2022 Sex: Unknown Functional [...] SNOMED-CT Code Diagnosis ICD10 Code Diagnosis Note [id number] MD SHERRI Gordon MD [address] [place] [address] 05/30/2024 11:19:16 05/30/2024 14:52:00 Prolapse of uterine cervical stump 506520300 N81.85 Pre-surger y evaluation 526264015 Z01.818 Health Concerns Section Related Observation LastModified by Organization Detai ls LastModified Time None Recorded Concern Status LastModified by Organization Details LastModified Time None Recorded Payers Encounter Date Sequence Insurance Name Policy Number Policy Melendez Covered Member ID Melendez Member ID Guarantor Name 05/30/2024 1 [place] [id number] 2 Ye Venegas [id number] Verito Venegas Notes Date Note Type Note Provider Name and Address Organization Details Recorded Time 05/30/2024 text/html Pt presents for possible recurrent prolapse. She states that she does not have any bladder leakage or constipation. She states that she has been very careful about lifting things. She has had multiple prolapse surgeries in the past. ULS reveals MD [address], [place], [address], [facility] 05/30/2024 15:54:03 OBGyn Episode No OBEpisode recorded.
--- NOTE | 2024-06-14 09:55 | MM_ITS ---
PROCEDURE INFORMATION: Exam: MG Bilateral Screening 3D Mammography Exam date and time: 06/14/2024 10:49 AM Age: 59 years old Clinical indication: Screening examination TECHNIQUE: Imaging protocol: Bilateral Screening tomosynthesis and 2D mammography including computer-aided detection (CAD) when performed. COMPARISON: No relevant prior studies available. FINDINGS: MAMMOGRAPHY: Breast composition: The breasts are heterogeneously dense, which may obscure small masses. Mass: None. Architectural distortion: None. Calcifications: No suspicious calcifications. Asymmetric density: None. Skin thickening: None. Axillary adenopathy: None. IMPRESSION: No mammographic evidence of malignancy. Annual screening is recommended unless otherwise clinically indicated. ASSESSMENT: BI-RADS Category 1: Negative.
--- NOTE | 2024-06-14 10:02 | US_ITS ---
FINAL REPORT TECHNIQUE: Sonographic images of the thyroid were obtained. CLINICAL HISTORY: Thyromegaly COMPARISON: None FINDINGS: THYROID ULTRASOUND The right thyroid gland measures 5.5 x 2.5 x 1.5 cm. The left thyroid gland measures 5.0 x 2.3 x 1.7 cm. The thyroid is heterogeneous consistent with diffuse goiter. No discrete nodules identified. IMPRESSION: Heterogeneous thyroid consistent with diffuse goiter, no discrete nodules identified. Reviewed, Interpreted and Dictated by Salvador Bundy MD Transcribed by Dominique Cee Authenticated and [facility]
== END 2024-06-14 23:59 | disposition home or self-care (01) ==
LOC: RAD 09:51
PROVIDERS: PCP Internal Medicine Adolescent Medicine; Visit Provider Nurse Practitioner Family
DX: Z12.31 Encounter for screening mammogram for malignant neoplasm of breast (principal); E04.8 Other specified nontoxic goiter; R92.333 Mammographic heterogeneous density, bilateral breasts
CPT/HCPCS: 76536; 77063; 77067